=== PATIENT | male | born 1935 | race Caucasian/White ===

== ENCOUNTER 2017-09-13 03:07 | Emergency (ER) | payer MEDICARE, OTHER ==
[2017-09-13] MEDS ORDERED: Aspirin 81 MG Tab.Chew PO ONE (03:24)
--- NOTE | 2017-09-13 03:35 | EDM.PDOC ---
ED HPI GENERAL MEDICAL PROBLEM - General Chief Complaint: Back Pain or Injury Stated Complaint: POSSIBLE HEART ATTACK Time Seen by Provider: 09/13/17 03:20 Source of Information: Reports: Patient, Old Records, RN, RN Notes Reviewed History Limitations: Reports: No Limitations - History of Present Illness INITIAL COMMENTS - FREE TEXT/NARRATIVE: Getachew is a 81 yo M who presents due to right shoulder pain and right sided chest pain. He reports that his pain started around [id number] when he was getting ready for bed. Reports that he has sharp pain in the right side of his neck, radiating down right shoulder, into his right elbow. He reports that his pain radiates into his right chest. Pain in his chest is worse with movement and breathing. He denies cough, shortness of breath, nausea/vomiting, or recent illness. reports that he woke up complaining of pain to his shoulder and she put "bath and body cream" on his shoulder. 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: Aspirin Right Back Pain Score (Numeric/FACES): 3 - Related Data Allergies Allergy/AdvReac Type Severity Reaction Status Date / Time acetaminophen [From Tylenol] Allergy Confusion Verified 09/13/17 03:15 ibuprofen Allergy Confusion Verified 09/13/17 03:15 Home Meds: Home Meds Bimatoprost [Lumigan 0.01% Ophth Soln] 1 drop EYEBOTH BEDTIME 07/27/15 [History] Brimonidine Tartrate [Alphagan P 0.1% Ophth Soln] 1 drop EYERT BID 07/27/15 [ History] Past Medical History HEENT History: Reports: Impaired Vision Respiratory History: Reports: None, Other (See Below) Gastrointestinal History: Reports: None Genitourinary History: Reports: None 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 Musculoskeletal History: Reports: None Neurological History: Reports: None Psychiatric History: Reports: None Endocrine/Metabolic History: Reports: None Hematologic History: Reports: None Immunologic History: Reports: None Dermatologic History: Reports: None - Infectious Disease History Infectious Disease History: Reports: None - Past Surgical History HEENT Surgical History: Reports: Cataract Surgery GI Surgical History: Reports: Appendectomy, Cholecystectomy Social & Family History - Family History HEENT: Reports: None Cardiac: Reports: None Respiratory: Reports: None, Other (See Below) GI: Reports: None - Tobacco Use Smoking Status *Q: Current Every Day Smoker Years of Tobacco use: 60 Packs/Tins Daily: 0.2 Used Tobacco, but Quit: No Second Hand Smoke Exposure: Yes - Caffeine Use Caffeine Use: Reports: Coffee - Recreational Drug Use Recreational Drug Use: No ED ROS GENERAL - Review of Systems Review Of Systems: ROS reveals no pertinent complaints other than HPI. ED EXAM,LOWER BACK PAIN/INJURY - Physical Exam Exam: See Below Exam Limited By: No Limitations General Appearance: Alert, WD/WN, No Apparent Distress Eye Exam: Bilateral Eye: PERRL Ears: Normal External Exam, Normal Canal, Hearing Grossly Normal, Normal TMs Nose: Normal Inspection, Normal Mucosa, No Blood Throat/Mouth: Normal Inspection, Normal Lips, Normal Teeth, Normal Gums, Normal Oropharynx, Normal Voice, No Airway Compromise Head: Atraumatic, Normocephalic Neck: Normal Inspection, Supple, Other (Reports pain to right side of neck. Increased pain will movement) Respiratory/Chest: No Respiratory Distress, Lungs Clear, Normal Breath Sounds, No Accessory Muscle Use, Other (Right upper chest pain) Cardiovascular: Normal Peripheral Pulses, Regular Rate, Rhythm, No Edema, No Gallop, No JVD, No Murmur, No Rub GI/Abdominal: Normal Bowel Sounds, Soft, Non-Tender, No Organomegaly, No Distention, No Abnormal Bruit, No Mass (Male) Exam: Deferred Rectal (Males) Exam: Deferred Back Exam: Normal Inspection, Full Range of Motion, NT Extremities: Normal Inspection, No Pedal Edema, Normal Capillary Refill, Arm Pain, Limited Range of Motion (Pain to right shoulder. Difficulty abducting arm. Positive empty can sign. Patient has pain will crossing arm across chest. No abnormalities noted to left arm/shoulder ) Neurological: Alert, Normal Mood/Affect, Normal Dorsiflexion, CN II-XII Intact, Normal Plantar Flexion, Normal Gait, Normal Reflexes, No Motor/Sensory Deficits , Oriented x 3 Psychiatric: Normal Affect, Normal Mood Skin Exam: Warm, Dry, Intact, Normal Color, No Rash Lymphatic: No Adenopathy EKG INTERPRETATION EKG Date: 09/13/17 Time: 03:41 Rhythm: Other (Sinus rhythm with PVC) Comparison: No Change Course - Vital Signs Last Recorded V/S: Last Vital Signs Temp 97.7 F 09/13/17 03:11 Pulse 80 09/13/17 03:11 Resp 22 H 09/13/17 03:11 BP 125/77 09/13/17 03:23 Pulse Ox 95 09/13/17 03:11 - Orders/Labs/Meds Orders: Active Orders 24 hr Category Date Time Status EKG Documentation Completion [RC] URGENT Care 09/13/17 03:24 Active Labs: Laboratory Tests 09/13/17 09/13/17 Range/Units 03:18 03:18 WBC 12.1 H (5.0-10.0) 10^3/uL RBC 3.88 L (4.6-6.2) 10^6/uL Hgb 12.8 L (14.0-18.0) g/dL Hct 36.2 L (40.0-54.0) % MCV 93.3 (80-100) fL MCH 33.0 (27.0-34.0) pg MCHC 35.4 H (33.0-35.0) g/dL Plt Count 360 D (150-450) 10^3/uL Neut % (Auto) 63.8 (42.2-75.2) % Lymph % (Auto) 18.1 L (20.5-50.1) % Price % (Auto) 16.4 H (2-8) % Eos % (Auto) 1.3 (1.0-3.0) % Baso % (Auto) 0.4 (0.0-1.0) % Sodium 126 L (135-145) mmol/L Potassium 3.4 L (3.6-5.0) mmol/L Chloride 94 L (101-111) mmol/L Carbon Dioxide 24.0 (21.0-31.0) mmol/L Anion Gap 11.4 BUN 13 (7-18) mg/dL Creatinine 0.8 (0.6-1.3) mg/dL Est Cr Clr Drug Dosing 65.41 mL/min Estimated GFR (MDRD) > 60 BUN/Creatinine Ratio 16.25 Glucose 95 (74-105) mg/dL Calcium 8.0 L (8.4-10.2) mg/dl Total Bilirubin 1.8 H (0.2-1.0) mg/dL AST 25 (10-42) IU/L ALT 18 (10-60) IU/L Alkaline Phosphatase 49 (42-121) IU/L Troponin I < 0.02 (0.00-0.02) ng/ml Total Protein 7.0 (6.7-8.2) g/dl Albumin 3.4 (3.2-5.5) g/dl Globulin 3.6 Albumin/Globulin Ratio 0.94 Meds: Medications Discontinued Medications Generic Name Dose Route Start Last Admin Trade Name Freq PRN Reason Stop Dose Admin Aspirin 324 mg 09/13/17 03:24 09/13/17 03:28 Aspirin PO 09/13/17 03:25 324 mg ONETIME ONE Administration Morphine Sulfate 2 mg 09/13/17 03:41 09/13/17 03:55 Morphine IVPUSH 09/13/17 03:42 2 mg ONETIME ONE Administration Departure - Departure Time of Disposition: 04:17 Disposition: Home, Self-Care 01 Condition: Good Clinical Impression: Neck pain on right side Right shoulder pain Qualifiers: Chronicity: unspecified Qualified Code(s): M25.511 - Pain in right shoulder - Discharge Information Instructions: Shoulder Pain, Muscle Strain, [id number] Forms: ED Department Discharge Care Plan Goals: Lidocaine patch as needed for pain. Follow-up with your primary care facility later this week for a recheck. Gentle ROM to shoulder to prevent frozen shoulder.
[2017-09-13] MEDS ORDERED: Morphine 2 MG/ML Syringe IVPUSH ONE (03:41)
[2017-09-13 03:44] LABS: ANION GAP 11.4; CHLORIDE,CL 94 mmol/L (101-111); SODIUM,NA 126 mmol/L (135-145)
[2017-09-13] MEDS ORDERED: Lidocaine 5% 700 MG Patch TOP ONE (04:17)
[2017-09-13 04:39] VITALS: BP 125/68
--- NOTE | 2017-09-13 14:08 | EKG ---
09/13/2017- SHARRI CARPIO - FINDINGS: EKG, per my reading, shows sinus rhythm at the rate of 75 with PVC. MOD /[id number]
== END 2017-09-13 04:45 | disposition home or self-care (01) ==
LOC: DL.ED 03:07
DX: M25.511 Pain in right shoulder (principal); M54.2 Cervicalgia; R07.9 Chest pain, unspecified; F17.210 Nicotine dependence, cigarettes, uncomplicated; Z88.6 Allergy status to analgesic agent; Z88.8 Allergy status to other drugs, medicaments and biological substances
CPT/HCPCS: 36415; 71045; 73060; 80053; 84484; 85025; 93005; 93010; 96374; 99284; A9270; J2270

== ENCOUNTER 2020-06-14 08:37 | Observation (INO) | payer MEDICARE, OTHER ==
--- NOTE | 2020-06-14 08:38 | EDM.PDOC ---
ED HPI GENERAL MEDICAL PROBLEM - General Chief Complaint: Neuro Symptoms/Deficits Stated Complaint: STROKE CODE ER 20 MINS Time Seen by Provider: 06/14/20 08:38 Source of Information: Reports: Patient, EMS, Old Records, RN, RN Notes Reviewed History Limitations: Reports: Altered Mental Status - History of Present Illness INITIAL COMMENTS - FREE TEXT/NARRATIVE: Pt arrives from home by [facility] with report of sudden onset of slumping over in his chair and being unresponsive. Last known well time was 0730HRS per pt's . Pt had just finished wrapping his 's leg, and was waiting for breakfast when he slumped down in his chair. Pt did not fall. EMS reports pt woke up while in the ambulance. He was found by EMS to have BP 70s/30s with HR in 50s on scene. His blood glucose was 96. EMS gave one liter NS IV bolus, BP and HR improved and pt woke up. He arrives to ER awake, alert, oriented, and wondering "what all the fuss is about". He denies chest pain, lightheadedness, visual changes, difficulty with speech or swallowing, or motor weakness. Denies Hx of CAD/NH, or stroke. Onset: Today, Unknown/Unsure Onset Date: 06/14/20 Onset Time: 07:30 (Last known well time.) Duration: Resolved Prior to Arrival Location: Reports: Generalized Severity: Severe Improves with: Reports: None Worsens with: Reports: None Associated Symptoms: Reports: No Other Symptoms Head Pain Score (Numeric/FACES): 4 - Related Data Allergies Allergy/AdvReac Type Severity Reaction Status Date / Time acetaminophen [From Tylenol] Allergy Confusion Verified 06/14/20 09:28 ibuprofen Allergy Confusion Verified 06/14/20 09:28 Home Meds: Home Meds Bimatoprost [Lumigan 0.01% Ophth Soln] 1 drop EYEBOTH BEDTIME 07/27/15 [History] Brimonidine Tartrate [Alphagan P 0.1% Ophth Soln] 1 drop EYERT BID 07/27/15 [History] Past Medical History HEENT History: Reports: Impaired Vision Respiratory History: Reports: None, Other (See Below) Gastrointestinal History: Reports: None Genitourinary History: Reports: None 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 Musculoskeletal History: Reports: None Neurological History: Reports: None Psychiatric History: Reports: None Endocrine/Metabolic History: Reports: None Hematologic History: Reports: None Immunologic History: Reports: None Dermatologic History: Reports: None - Infectious Disease History Infectious Disease History: Reports: None - Past Surgical History HEENT Surgical History: Reports: Cataract Surgery GI Surgical History: Reports: Appendectomy, Cholecystectomy Social & Family History - Family History HEENT: Reports: None Cardiac: Reports: None Respiratory: Reports: None, Other (See Below) GI: Reports: None - Tobacco Use Tobacco Use Status *Q: Current Every Day Tobacco User Tobacco Use Within Last Twelve Months: Cigarettes - Caffeine Use Caffeine Use: Reports: Coffee - Living Situation & Occupation Living situation: Reports: , with Spouse Occupation: Retired ED ROS GENERAL - Review of Systems Review Of Systems: Comprehensive ROS is negative, except as noted in HPI. ED EXAM, NEURO - Physical Exam Exam: See Below Exam Limited By: No Limitations General Appearance: Alert, WD/WN, No Apparent Distress, Other (Frail elderly male) Eye Exam: Bilateral Eye: EOMI, Normal Inspection, PERRL Ears: Normal External Exam Nose: Normal Inspection, Normal Mucosa, No Blood Throat/Mouth: Normal Inspection, Normal Lips, Normal Oropharynx, Normal Voice, No Airway Compromise Head Exam: Atraumatic, Normocephalic Neck: Normal Inspection, Supple, Non-Tender, Full Range of Motion Respiratory/Chest: No Respiratory Distress, Lungs Clear, Normal Breath Sounds, No Accessory Muscle Use, Chest Non-Tender Cardiovascular: Regular Rate, Rhythm, No Edema, Bradycardia GI/Abdominal: Normal Bowel Sounds, Soft, Non-Tender, No Organomegaly, No Distention, No Abnormal Bruit, No Mass Neurological: Alert, Normal Mood/Affect, Normal Dorsiflexion, CN II-XII Intact, Normal Plantar Flexion, No Motor/Sensory Deficits, Oriented x 3, Other (NIH score: 0) Back Exam: Normal Inspection Extremities: Normal Inspection, Normal Range of Motion, Non-Tender, No Pedal Edema, Normal Capillary Refill Psychiatric: Normal Affect, Normal Mood Skin Exam: Warm, Dry, Intact, Normal Color, No Rash #1 Interpretation EKG Date: 06/14/20 Time: 08:47 Rhythm: Other (Sinus elisabeth) Rate (Beats/Min): 57 [place]: Normal P-Wave: Present QRS: Normal ST-T: Normal QT: Prolonged NC/PQ Interval: short NC interval Comparison: No Change Course - Vital Signs Last Recorded V/S: Last Vital Signs Temp 97.6 F 06/14/20 09:15 Pulse 58 L 06/14/20 09:15 Resp 15 06/14/20 09:15 BP 101/55 L 06/14/20 09:15 Pulse Ox 98 06/14/20 09:15 - Orders/Labs/Meds Orders: Active Orders 24 hr Category Date Time Status Admission Diagnosis [ADT] Routine ADT 06/14/20 10:05 Ordered Admission Status [Patient Status] [ADT] Routine ADT 06/14/20 10:05 Active Blood Glucose Check, Bedside [] ONETIME Care 06/14/20 08:38 Active Blood Glucose Check, Bedside [] ONETIME Care 06/14/20 08:48 Active EKG 12 Lead [EKG Documentation Completion] [] STAT Care 06/14/20 08:39 Active NIH Stroke Scale [] ASDIRECTED Care 06/14/20 08:49 Active Orthostatic Vital Signs [] ASDIRECTED Care 06/14/20 09:12 Active Peripheral IV Care [] . DIRECTED Care 06/14/20 08:40 Active CORONAVIRUS COVID-19 CHASITY [MOLEC] Stat Lab 06/14/20 09:53 Received DRUG SCREEN URINE BIORAD [URCHEM] Stat Lab 06/14/20 08:39 Ordered INFLUENZA A+B AG SCREEN [RM] Stat Lab 06/14/20 09:53 Received UA RFX VIRIDIANA AND CULT IF INDIC [URIN] Stat Lab 06/14/20 08:39 Ordered Sodium Chloride 0.9% [Saline Flush] Med 06/14/20 08:39 Active 10 ml FLUSH ASDIRECTED PRN Isolation [COMM] Routine Oth 06/14/20 09:50 Active Peripheral IV Insertion Adult [OM.PC] Stat Oth 06/14/20 08:39 Ordered Medication Orders Sodium Chloride (Saline Flush) 10 ml FLUSH ASDIRECTED PRN PRN Reason: Keep Vein Open Last Admin: 06/14/20 09:27 Dose: 10 ml Documented by: BLAISE Labs: Laboratory Tests 06/14/20 06/14/20 06/14/20 Range/Units 08:41 09:14 09:14 WBC 6.1 (5.0-10.0) 10^3/uL RBC 3.45 L (4.6-6.2) 10^6/uL Hgb 11.3 L D (14.0-18.0) g/dL Hct 33.2 L (40.0-54.0) % MCV 96.2 D (80-100) fL MCH 32.8 (27.0-34.0) pg MCHC 34.0 (33.0-35.0) g/dL Plt Count 274 (150-450) 10^3/uL Neut % (Auto) 52.1 (42.2-75.2) % Lymph % (Auto) 26.7 (20.5-50.1) % [place] % (Auto) 14.5 H (2-8) % Eos % (Auto) 5.9 H (1.0-3.0) % Baso % (Auto) 0.8 (0.0-1.0) % PT (9.0-12.0) SEC INR (0.9-1.2) APTT (22.0-34.0) SEC Sodium 134 L (136-145) mmol/L Potassium 4.2 (3.5-5.1) mmol/L Chloride 98 (98-107) mmol/L Carbon Dioxide 29 (21-32) mmol/L Anion Gap 11.2 (7-13) mEq/L BUN 12 (7-18) mg/dL Creatinine 1.04 (0.70-1.30) mg/dL Est Cr Clr Drug Dosing TNP Estimated GFR (MDRD) > 60 BUN/Creatinine Ratio 11.5 (No establ ref range) Glucose 93 (74-99) mg/dL POC Glucose 91 (83-110) mg/dl Lactic Acid (0.4-2.0) mmol/L Calcium 7.7 L (8.5-10.1) mg/dL Magnesium 1.6 L (1.8-2.4) mg/dL Total Bilirubin 1.3 H (0.2-1.0) mg/dL AST 18 (15-37) U/L ALT 19 (16-63) U/L Alkaline Phosphatase 55 (46-116) U/L Creatine Kinase 91 (39-308) U/L Troponin I < 0.017 (0.000-0.056) ng/mL C-Reactive Protein < 0.2 (0.0-0.9) mg/dL B-Natriuretic Peptide 116 H (0-100) pg/ml Total Protein 6.1 L (6.4-8.2) g/dL Albumin 2.9 L (3.4-5.0) g/dL Globulin 3.2 Albumin/Globulin Ratio 0.91 TSH, Ultra Sensitive 3.06 (0.36-3.74) uIU/mL Ethyl Alcohol 3 (0) mg/dL 06/14/20 06/14/20 Range/Units 09:14 09:14 WBC (5.0-10.0) 10^3/uL RBC (4.6-6.2) 10^6/uL Hgb (14.0-18.0) g/dL Hct (40.0-54.0) % MCV (80-100) fL MCH (27.0-34.0) pg MCHC (33.0-35.0) g/dL Plt Count (150-450) 10^3/uL Neut % (Auto) (42.2-75.2) % Lymph % (Auto) (20.5-50.1) % Upson % (Auto) (2-8) % Eos % (Auto) (1.0-3.0) % Baso % (Auto) (0.0-1.0) % PT 11.1 (9.0-12.0) SEC INR 1.2 (0.9-1.2) APTT 25.3 (22.0-34.0) SEC Sodium (136-145) mmol/L Potassium (3.5-5.1) mmol/L Chloride (98-107) mmol/L Carbon Dioxide (21-32) mmol/L Anion Gap (7-13) mEq/L BUN (7-18) mg/dL Creatinine (0.70-1.30) mg/dL Est Cr Clr Drug Dosing Estimated GFR (MDRD) BUN/Creatinine Ratio (No establ ref range) Glucose (74-99) mg/dL POC Glucose (83-110) mg/dl Lactic Acid 1.1 (0.4-2.0) mmol/L Calcium (8.5-10.1) mg/dL Magnesium (1.8-2.4) mg/dL Total Bilirubin (0.2-1.0) mg/dL AST (15-37) U/L ALT (16-63) U/L Alkaline Phosphatase (46-116) U/L Creatine Kinase (39-308) U/L Troponin I (0.000-0.056) ng/mL C-Reactive Protein (0.0-0.9) mg/dL B-Natriuretic Peptide (0-100) pg/ml Total Protein (6.4-8.2) g/dL Albumin (3.4-5.0) g/dL Globulin Albumin/Globulin Ratio TSH, Ultra Sensitive (0.36-3.74) uIU/mL Ethyl Alcohol (0) mg/dL Meds: Medications Generic Name Dose Route Start Last Admin Trade Name Freq PRN Reason Stop Dose Admin Sodium Chloride 10 ml 06/14/20 08:39 06/14/20 09:27 Saline Flush FLUSH 10 ml ASDIRECTED PRN Administration Keep Vein Open - Radiology Interpretation Free Text/Narrative:: [facility] Final Radiology Report Call: [phone] assistance Online chat: [email or web address] Name: SHARRI CARPIO Age: 84Years M Date: 06/14/2020 SSN: -- : [id number] Study: CT HEAD WO CONT Requesting Physician: LLOYD MENG Images: 151 Addl Studies: Provided Clinical History: STROKE CODE: sudden onset unresponsiveness Contrast: Without Contrast Medium: Contrast Amount: Contrast Method: Page 1 of 2 PROCEDURE INFORMATION: Exam: CT Head Without Contrast Exam date and time: 06/14/2020 8:42 AM Age: 84 years old Clinical indication: Other: See below; Patient HX: Stroke code: Sudden onset unresponsiveness TECHNIQUE: Imaging protocol: Computed tomography of the head without contrast. Radiation optimization: All CT scans at this facility use at least one of these dose optimization techniques: automated exposure control; mA and/or kV adjustment per patient size (includes targeted exams where dose is matched to clinical indication); or iterative reconstruction . Other technique: STROKE PROTOCOL was implemented. COMPARISON: CT Head wo Cont 01/14/2019 9:45 AM FINDINGS: Brain: No intracranial hemorrhage. There is diffuse cerebral atrophy. There are white matter low attenuation changes in both cerebral hemispheres potentially related to chronic small vessel disease. Subjectively there appears to be decreased attenuation in both inferior occipital lobes and the susan. This might be artifactual, but given the history consider the possibility of posterior circulation ischemic event. Cerebral ventricles: No hydrocephalus. Bones/joints: No calvarial fracture. Paranasal sinuses: Mild multifocal mucoperiosteal thickening. Mastoid air cells: Bilateral mastoid air cell effusions. Soft tissues: No acute soft tissue abnormality. IMPRESSION: No intracranial hemorrhage. Findings which may be due to posterior circulation ischemic event. If the clinical scenario would support this further evaluation with CTA may be helpful. SHARRI CARPIO | Final Radiology Report CONFIDENTIALITY STATEMENT This report is intended only for use by the referring physician, and only in accordance with law. If you received this in error, call [phone]. Page 2 of 2 ASSESSMENT: ASPECTS ([place] Stroke Program Early CT Score) is 10. Thank you for allowing us to participate in the care of your patient. Dictated and Authenticated by: Apolinar Liang MD 06/14/2020 8:59 AM Central Time ([place] & [place]) [facility] Final Radiology Report Call: [phone] assistance Online chat: [email or web address] Name: SHARRI CARPIO Age: 84Years M Date: 06/14/2020 SSN: -- : [id number] Study: CR CHEST 1V FRONTAL Requesting Physician: LLOYD MENG Images: 1 Addl Studies: Provided Clinical History: syncope Contrast: Contrast Medium: Contrast Amount: Contrast Method: CONFIDENTIALITY STATEMENT This report is intended only for use by the referring physician, and only in accordance with law. If you received this in error, call [phone]. Page 1 of 1 PROCEDURE INFORMATION: Exam: XR Chest, 1 View Exam date and time: 06/14/2020 9:42 AM Age: 84 years old Clinical indication: Syncope TECHNIQUE: Imaging protocol: XR of the chest Views: 1 view. COMPARISON: No relevant prior studies available. FINDINGS: Lungs: Left basilar atelectasis versus scarring. No pulmonary vascular congestion or pulmonary edema. Pleural space: No pleural effusion or pneumothorax. Heart/Mediastinum: The cardiac silhouette is not enlarged. The mediastinal contours are normal. Diaphragm: Elevated left hemidiaphragm. Bones/joints: No acute osseous abnormality. IMPRESSION: Left basilar atelectasis versus scarring. Thank you for allowing us to participate in the care of your patient. Dictated and Authenticated by: Apolinar Liang MD 06/14/2020 9:59 AM Central Time ([place] & [place]) Departure - Departure Time of Disposition: 10:10 (admitted to Dr. Ventura) Disposition: Refer to Observation Condition: Undetermined Clinical Impression: Syncope Qualifiers: Syncope type: unspecified Qualified Code(s): R55 - Syncope and collapse - Discharge Information *PRESCRIPTION DRUG MONITORING PROGRAM REVIEWED*: Not Applicable *COPY OF PRESCRIPTION DRUG MONITORING REPORT IN PATIENT KENNEDY: Not Applicable Forms: ED Department Discharge Sepsis Event Note (ED) - Focused Exam Vital Signs: Vital Signs Temp Pulse Resp BP Pulse Ox 06/14/20 09:15 97.6 F 58 L 15 101/55 L 98 - My Orders Last 24 Hours: My Active Orders 06/14/20 08:38 Blood Glucose Check, Bedside [RC] ONETIME 06/14/20 08:39 EKG 12 Lead [EKG Documentation Completion] [RC] STAT DRUG SCREEN URINE BIORAD [URCHEM] Stat UA RFX VIRIDIANA AND CULT IF INDIC [URIN] Stat Sodium Chloride 0.9% [Saline Flush] 10 ml FLUSH ASDIRECTED PRN Peripheral IV Insertion Adult [OM.PC] Stat 06/14/20 08:40 Peripheral IV Care [RC] . DIRECTED 06/14/20 08:48 Blood Glucose Check, Bedside [RC] ONETIME 06/14/20 08:49 NIH Stroke Scale [RC] ASDIRECTED 06/14/20 09:12 Orthostatic Vital Signs [RC] ASDIRECTED 06/14/20 09:50 Isolation [COMM] Routine 06/14/20 09:53 CORONAVIRUS COVID-19 CHASITY [MOLEC] Stat INFLUENZA A+B AG SCREEN [RM] Stat 06/14/20 10:05 Admission Diagnosis [ADT] Routine Admission Status [Patient Status] [ADT] Routine - Assessment/Plan Last 24 Hours: My Active Orders 06/14/20 08:38 Blood Glucose Check, Bedside [RC] ONETIME 06/14/20 08:39 EKG 12 Lead [EKG Documentation Completion] [RC] STAT DRUG SCREEN URINE BIORAD [URCHEM] Stat UA RFX VIRIDIANA AND CULT IF INDIC [URIN] Stat Sodium Chloride 0.9% [Saline Flush] 10 ml FLUSH ASDIRECTED PRN Peripheral IV Insertion Adult [OM.PC] Stat 06/14/20 08:40 Peripheral IV Care [RC] . DIRECTED 06/14/20 08:48 Blood Glucose Check, Bedside [RC] ONETIME 06/14/20 08:49 NIH Stroke Scale [RC] ASDIRECTED 06/14/20 09:12 Orthostatic Vital Signs [RC] ASDIRECTED 06/14/20 09:50 Isolation [COMM] Routine 06/14/20 09:53 CORONAVIRUS COVID-19 CHASITY [MOLEC] Stat INFLUENZA A+B AG SCREEN [RM] Stat 06/14/20 10:05 Admission Diagnosis [ADT] Routine Admission Status [Patient Status] [ADT] Routine
[2020-06-14] MEDS ORDERED: Sodium Chloride 0.9% 10 ML Syringe FLUSH PRN (08:39)
--- NOTE | 2020-06-14 08:59 | CT ---
PROCEDURE INFORMATION: Exam: CT Head Without Contrast Exam date and time: 06/14/2020 8:42 AM Age: 84 years old Clinical indication: Other: See below; Patient HX: Stroke code: Sudden onset unresponsiveness TECHNIQUE: Imaging protocol: Computed tomography of the head without contrast. Radiation optimization: All CT scans at this facility use at least one of these dose optimization techniques: automated exposure control; mA and/or kV adjustment per patient size (includes targeted exams where dose is matched to clinical indication); or iterative reconstruction. Other technique: STROKE PROTOCOL was implemented. COMPARISON: CT Head wo Cont 01/14/2019 9:45 AM FINDINGS: Brain: No intracranial hemorrhage. There is diffuse cerebral atrophy. There are white matter low attenuation changes in both cerebral hemispheres potentially related to chronic small vessel disease. Subjectively there appears to be decreased attenuation in both inferior occipital lobes and the susan. This might be artifactual, but given the history consider the possibility of posterior circulation ischemic event. Cerebral ventricles: No hydrocephalus. Bones/joints: No calvarial fracture. Paranasal sinuses: Mild multifocal mucoperiosteal thickening. Mastoid air cells: Bilateral mastoid air cell effusions. Soft tissues: No acute soft tissue abnormality. IMPRESSION: No intracranial hemorrhage. Findings which may be due to posterior circulation ischemic event. If the clinical scenario would support this further evaluation with CTA may be helpful. ASSESSMENT: ASPECTS ([place] Stroke Program Early CT Score) is 10.
[2020-06-14 09:42] LABS: PTT,PARTIAL THROMBOPLSTIN TIME 25.3 SEC (22.0-34.0)
[2020-06-14 09:49] LABS: ANION GAP 11.2 mEq/L (7-13); CHLORIDE,CL 98 mmol/L (98-107); SODIUM,NA 134 mmol/L (136-145)
--- NOTE | 2020-06-14 10:00 | CR ---
PROCEDURE INFORMATION: Exam: XR Chest, 1 View Exam date and time: 06/14/2020 9:42 AM Age: 84 years old Clinical indication: Syncope TECHNIQUE: Imaging protocol: XR of the chest Views: 1 view. COMPARISON: No relevant prior studies available. FINDINGS: Lungs: Left basilar atelectasis versus scarring. No pulmonary vascular congestion or pulmonary edema. Pleural space: No pleural effusion or pneumothorax. Heart/Mediastinum: The cardiac silhouette is not enlarged. The mediastinal contours are normal. Diaphragm: Elevated left hemidiaphragm. Bones/joints: No acute osseous abnormality. IMPRESSION: Left basilar atelectasis versus scarring.
[2020-06-14] MEDS ORDERED: Docusate Sodium 100 MG Cap PO PRN (11:27)
[2020-06-14] MEDS ORDERED: Ondansetron 4 MG Tab.DIS PO PRN (11:27)
[2020-06-14] MEDS ORDERED: Acetaminophen 325 MG Tab PO PRN (11:27)
[2020-06-14] MEDS ORDERED: ALBUTEROL INH PRN ×2 (11:29→15:28)
[2020-06-14] MEDS ORDERED: IPRATROPIUM INH PRN ×2 (11:29→15:28)
[2020-06-14] MEDS ORDERED: Sodium Chloride 0.9% 1,000 ML IV SCH ×2 (11:30→12:45)
--- NOTE | 2020-06-14 12:29 | HP ---
CHIEF COMPLAINT: Syncope. HISTORY OF PRESENT ILLNESS: The patient is an 84-year-old gentleman who was brought in by ambulance to the emergency room because of sudden onset of slumping over on his chair and being unresponsive. The patient mentioned that he was trying to help his wrap her leg and was waiting breakfast and suddenly he did not know what happened, and when he woke up, he was in the ambulance. In the ambulance, his blood pressure was 70/30 with heart rate in the 50s and he was given 1 L of normal saline and blood pressure and heart rate improved, and on arrival in the emergency room, he was awake, alert, and oriented. The patient denies any headache, chest pain, shortness of breath, abdominal pain, melena, hematochezia, nor any other complaints. Because of the above episode, he was then admitted for observation and further evaluation. PAST MEDICAL HISTORY: Remarkable for: 1. Hypothyroidism. 2. Hypomagnesemia. 3. Appendectomy. 4. Cholecystectomy. 5. Cataract surgery. FAMILY HISTORY: Noncontributory. SOCIAL HISTORY: Patient is , [place]. He smokes about 4 cigarettes a day and does not drink any alcohol. REVIEW OF SYSTEMS: As in HPI. The rest of the review of systems is negative. HOME MEDICATION: 1. Alphagan. 2. Lumigan. 3. Levothyroxine. 4. Magnesium. ALLERGIES: Tylenol and ibuprofen that is listed, but according to the patient and , he takes this without any problem. PHYSICAL EXAMINATION: General: The patient is alert and oriented, mild hard of hearing. Vital Signs: Blood pressure is 101/55, pulse of 58, respirations of 15, saturation is 98% on room air, and temperature of 97.6. SHEENT: Normocephalic. There are pink palpebral conjunctivae. Sclerae anicteric. No JVD. No lymphadenopathy. Neck: Supple. No carotid bruits. Heart: Regular rate and rhythm. Normal S1 and S2. No gallops. No rubs. Lungs: Equal bilaterally. No crackles. No wheezing. Abdomen: Soft. Nontender. Bowel sounds positive. Extremities: Negative for any pedal edema. No calf tenderness. Neurologic: Negative for any lateralizing signs. LABORATORY DATA: CBC: WBC 6.1, hemoglobin is 11.3, hematocrit is 33.2, platelet is 274. Comp panel: Sodium is 134, calcium is 7.7, magnesium is 1.6, total bilirubin of 1.3. The rest of the panel unremarkable. Troponin is less than 0.017. CAT scan of the head, no intracranial hemorrhage, findings which may be due to posterior circulation ischemic event if the clinical scenario would support. Chest x-ray showed left bibasilar atelectasis versus scarring. There is no pulmonary vascular congestion or pulmonary edema. ADMITTING DIAGNOSES: Syncope, etiology undetermined. We are going to put him on telemetry. We will also order for an echocardiogram, and he will be given IV fluids. We will recheck troponin, CBC, and basic metabolic panel in a.m., and the rest of the management as necessary, and the patient is a full code. [facility] /[id number]
[2020-06-14] MEDS: Nicotine 7 MG/24 Hr Patch TRDERM SCH (12:36)
[2020-06-14] MEDS ORDERED: Loperamide 2 MG Cap PO PRN (16:43)
[2020-06-14] MEDS: IPRATROPIUM INH SCH ×2 (17:08→21:35)
[2020-06-14] MEDS: ALPHAGAN P EYERT SCH ×2 (17:10→21:34)
[2020-06-14] MEDS ORDERED: LUMIGAN 0.01% EYEBOTH SCH (21:00)
[2020-06-14] MEDS ORDERED: Aspirin 81 MG Tab.EC PO SCH (21:00)
[2020-06-14] MEDS: Acetaminophen 500 MG Tab PO SCH (21:33)
[2020-06-15 05:21] VITALS: BP 161/89
[2020-06-15] MEDS ORDERED: Levothyroxine 25 MCG Tab **OWN MED PO SCH (06:00)
[2020-06-15 06:58] LABS: ANION GAP 13.1 mEq/L (7-13); CHLORIDE,CL 97 mmol/L (98-107); SODIUM,NA 134 mmol/L (136-145)
[2020-06-15 08:14] VITALS: PULSE 72
[2020-06-15] MEDS ORDERED: Enoxaparin 40 MG/0.4 ML Syringe SUBCUT SCH (09:00)
[2020-06-15] MEDS: IPRATROPIUM INH SCH (09:00)
[2020-06-15] MEDS ORDERED: BREO ELIPTA INH SCH (09:00)
[2020-06-15] MEDS ORDERED: MAGNESIUM OXIDE 400 MG PO SCH (09:00)
[2020-06-15] MEDS: ALPHAGAN P EYERT SCH (09:45)
[2020-06-15] MEDS: Nicotine 7 MG/24 Hr Patch TRDERM SCH (09:47)
[2020-06-15] MEDS: Acetaminophen 500 MG Tab PO SCH (11:01)
--- NOTE | 2020-06-15 14:21 | PN ---
DATE: 06/15/2020 SUBJECTIVE: The patient has been doing fairly well. The patient mentioned that he is feeling better and denies any more syncope and he would like to go home. Telemetry has been sinus rhythm with no significant arrhythmia. LABORATORY DATA: Lab workup this morning. CBC: WBC 6.5, hemoglobin is 12.7, hematocrit is 36.9, platelet is 324. Chem-6: Sodium is 134, chloride of 97. The rest of the panel unremarkable. OBJECTIVE: Vital Signs: Blood pressure is 161/89, pulse of 72, respirations of 20, temperature of 98.2, saturation is 94% on room air and telemetry is sinus rhythm with no significant arrhythmias. Heart: Regular rate and rhythm. No gallops. No rubs. Lungs: Equal bilaterally. No crackles. No wheezing. Abdomen: Soft, nontender. Bowel sounds positive. Extremities: Negative for any significant pedal edema. No calf tenderness. Neurologic: Nonfocal and negative for any lateralizing signs. MEDICATIONS: Reviewed. PLAN: We will discharge the patient home today and the patient to follow up with Cristina Tirado in 7 to 10 days, and the patient may still need to have his Holter monitor or ZIO patch done, and also the echocardiogram for completion of the syncope workup. I am also going to resume his previous home medication. [facility] /[id number]
--- NOTE | 2020-06-15 16:14 | DISCH ---
FINAL DIAGNOSES: 1. Syncope, etiology undetermined. 2. Hypothyroidism. 3. Hypomagnesemia. BRIEF HISTORY OF PRESENT ILLNESS: The patient is an 84-year-old gentleman who was admitted through the emergency room because of syncope. PERTINENT LABORATORY, X-RAY, AND OTHER TESTS: On admission, CBC, WBC 6.1, hemoglobin is 11.3, hematocrit is 33.2, platelets 274. Comp panel: Sodium is 134, calcium is 7.7, magnesium is 1.6, total bilirubin of 1.3, and the rest of the panel unremarkable. Troponin is less than 0.017. CAT scan of the head is negative for any acute intracranial pathology, but there are some findings which may be due to posterior circulation ischemic event and clinical scenario correlation. Chest x-ray showed left bibasilar atelectasis versus scarring. Repeat troponin is less than 0.017. Telemetry is sinus rhythm with no significant arrhythmia. HOSPITAL COURSE: The patient was admitted to telemetry floor. The patient was resumed on his home medication. He was also placed on baby aspirin a day. An echocardiogram was ordered, and the patient was placed on telemetry. Hospital course was uncomplicated. Telemetry was unremarkable. Repeat troponin came back negative. The patient is back to baseline, and the patient insisted on going home. The patient was subsequently discharged, and he was resumed on his home medication plus baby aspirin a day. He is going to follow up with Gunjan Tirado in 1 week, and he still has to have his echocardiogram and Holter monitor/ZIO patch to be done as part of the syncope workup. [facility] /[id number]
== END 2020-06-15 10:45 | disposition home or self-care (01) ==
LOC: DL.ED 08:37 → DL.MS 10:05
PROVIDERS: ADMIT Internal Medicine; ATTEND Internal Medicine
DX: R55 Syncope and collapse (principal); E03.9 Hypothyroidism, unspecified; E83.42 Hypomagnesemia; F17.210 Nicotine dependence, cigarettes, uncomplicated; Z20.822 Contact with and (suspected) exposure to COVID-19; Z90.49 Acquired absence of other specified parts of digestive tract; Z98.890 Other specified postprocedural states; Z79.899 Other long term (current) drug therapy; Z88.8 Allergy status to other drugs, medicaments and biological substances
CPT/HCPCS: 36415; 70450; 71045; 80048; 80053; 80305-QW; 80307; 81001; 82550; 82962; 83605; 83735; 83880; 84443; 84484; 85025; 85379; 85610; 85730; 86140; 87804; 93005; 93010; 93306; 99217; 99219; 99284; 99285-25; A9270-GY; G0378; J7030; U0002

== ENCOUNTER 2022-02-01 13:47 | Emergency (ER) | payer MEDICARE, OTHER ==
[2022-02-01] MEDS ORDERED: Sodium Chloride 0.9% 10 ML Syringe FLUSH PRN (14:18)
[2022-02-01 14:37] LABS: ANION GAP 10.6 mEq/L (7-13); CHLORIDE,CL 96 mmol/L (98-107); ESTIMATED GFR 56 mL/min (>=60); SODIUM,NA 139 mmol/L (136-145)
[2022-02-01 14:59] VITALS: BP 139/86; PULSE 75
== END 2022-02-01 16:44 | disposition home or self-care (01) ==
LOC: DL.ED 13:47
DX: R07.9 Chest pain, unspecified (principal); J44.9 Chronic obstructive pulmonary disease, unspecified; E03.9 Hypothyroidism, unspecified; F17.210 Nicotine dependence, cigarettes, uncomplicated; Z79.899 Other long term (current) drug therapy; Z79.82 Long term (current) use of aspirin; Z20.822 Contact with and (suspected) exposure to COVID-19
CPT/HCPCS: 36415; 71045; 80053; 83690; 83735; 84484; 85025; 86140; 93005; 99285; J3490; U0002

== ENCOUNTER 2022-05-09 16:15 | Inpatient (IN) | payer MEDICARE, OTHER ==
[2022-05-09] MEDS ORDERED: methylPREDNISolone Sodium Succinate 125 MG/2 ML SDV IVPUSH ONE (16:22)
[2022-05-09] MEDS ORDERED: Albuterol/Ipratropium 3.0-0.5 MG/3 ML Neb Soln NEB ONE (16:22)
[2022-05-09] MEDS: Sodium Chloride 0.9% 10 ML Syringe FLUSH PRN (17:00)
[2022-05-09 17:15] LABS: ANION GAP 12.8 mEq/L (7-13); PTT,PARTIAL THROMBOPLSTIN TIME 26.2 SEC (22.0-34.0)
[2022-05-09] MEDS ORDERED: Sodium Chloride 0.9% 1,000 ML IV ONE (17:18)
[2022-05-09] MEDS ORDERED: cefTRIAXone 1 GM Vial IVPUSH ONE (17:18)
[2022-05-09] MEDS ORDERED: Azithromycin 500 MG in Sodium Chloride 0.9% 250 ML IV ONE (17:19)
[2022-05-09 17:36] LABS: CORONAVIRUS COVID-19 NAA NEGATIVE (NEGATIVE); RESPIRATORY SYNCYTIAL VIR NAA NEGATIVE (NEGATIVE)
[2022-05-09] MEDS ORDERED: Polyethylene Glycol 3350 Powder 17 GM Packet PO PRN (19:26)
[2022-05-09] MEDS ORDERED: HYDROmorphone 0.5 MG/0.5 ML Syringe IVPUSH PRN (19:26)
[2022-05-09] MEDS ORDERED: Albuterol/Ipratropium 3.0-0.5 MG/3 ML Neb Soln NEB PRN (19:26)
[2022-05-09] MEDS ORDERED: Magnesium Hydroxide 400 MG/5 ML Susp 30 ML Cup PO PRN (19:26)
[2022-05-09] MEDS ORDERED: Acetaminophen 325 MG Tab PO PRN (19:26)
[2022-05-09] MEDS ORDERED: Ondansetron 4 MG/2 ML SDV IVPUSH PRN (19:26)
[2022-05-09] MEDS ORDERED: Bisacodyl 5 MG Tab PO PRN (19:26)
[2022-05-09] MEDS ORDERED: 50% Dextrose in Water 50 ML Syringe IVPUSH PRN (19:31)
[2022-05-09] MEDS ORDERED: Glucagon,Human Recombinant 1 MG Vial IM PRN (19:31)
[2022-05-09] MEDS ORDERED: Acetaminophen/Butalbital/Caffeine 325-50-40 MG Tab PO PRN (19:36)
[2022-05-09] MEDS ORDERED: Lactated Ringers 1,000 ML IV SCH (19:45)
[2022-05-09] MEDS ORDERED: guaiFENesin/Dextromethorphan 100-10 MG/5 ML Soln 5 ML Cup PO PRN (20:05)
[2022-05-09] MEDS ORDERED: Non-Formulary Medication 1 Each (Ipratropium Bromide [Ipratropium Bromide] 15 ML Spray) NS SCH (21:00)
[2022-05-09] MEDS ORDERED: rOPINIRole 2 MG Tab PO SCH (21:00)
[2022-05-09] MEDS: Saccharomyces Boulardii (Probiotic) 250 MG Cap PO SCH (23:03)
[2022-05-09] MEDS: Brimonidine 0.2% Ophth Soln 5 ML Bottle EYERT SCH (23:04)
[2022-05-09] MEDS: Melatonin 3 MG Tab PO SCH (23:04)
[2022-05-10] MEDS: Levothyroxine 25 MCG Tab PO SCH (05:48)
[2022-05-10 07:20] LABS: ANION GAP 10.2 mEq/L (7-13)
[2022-05-10] MEDS: methylPREDNISolone Sodium Succinate 125 MG/2 ML SDV IVPUSH SCH ×2 (09:01→15:03)
[2022-05-10] MEDS: Azithromycin 500 MG in Sodium Chloride 0.9% 250 ML IV SCH (09:01)
[2022-05-10] MEDS: Sodium Chloride 0.9% 10 ML Syringe FLUSH PRN ×4 (09:05→20:53)
[2022-05-10] MEDS: Vitamin E (dl-alpha-tocopherol acetate) 400 Unit Cap PO SCH (09:06)
[2022-05-10] MEDS: Ferrous Sulfate 325 MG Tab PO SCH (09:06)
[2022-05-10] MEDS: Cyanocobalamin (Vitamin B12) 100 MCG Tab PO SCH (09:07)
[2022-05-10] MEDS: Calcium Carbonate 500 MG Tab.Chew PO SCH (09:07)
[2022-05-10] MEDS: Saccharomyces Boulardii (Probiotic) 250 MG Cap PO SCH ×2 (09:07→20:59)
[2022-05-10] MEDS: Insulin Lispro 100 Units/ML 3 ML Vial SUBCUT SCH ×3 (09:07→17:22)
[2022-05-10] MEDS: Brimonidine 0.2% Ophth Soln 5 ML Bottle EYERT SCH (09:12)
[2022-05-10] MEDS ORDERED: guaiFENesin 600 MG Tab.ER PO ONE (11:00)
[2022-05-10] MEDS ORDERED: Furosemide 20 MG/2 ML VIAL IVPUSH ONE (11:15)
[2022-05-10] MEDS: OPTH EYERT SCH ×2 (12:30→21:07)
[2022-05-10] MEDS: BRIMONIDINE 0.1% EYERT SCH ×2 (12:30→21:07)
[2022-05-10] MEDS ORDERED: Famotidine 20 MG/2 ML SDV IVPUSH ONE (14:42)
[2022-05-10] MEDS: Albuterol/Ipratropium 3.0-0.5 MG/3 ML Neb Soln NEB SCH (20:15)
[2022-05-10] MEDS: cefTRIAXone 1 GM Vial IVPUSH SCH (20:53)
[2022-05-10] MEDS: rOPINIRole 0.25 MG Tab PO SCH (20:59)
[2022-05-10] MEDS: Melatonin 3 MG Tab PO SCH (21:01)
[2022-05-10] MEDS: guaiFENesin 600 MG Tab.ER PO SCH (21:01)
[2022-05-10] MEDS: Formoterol/Mometasone 200-5 MCG 8.8 GM Inhaler IH SCH (21:01)
[2022-05-10] MEDS: IPRATROPIUM BROMIDE 0.03% NASBOTH SCH (21:08)
[2022-05-10] MEDS: BIMATOPROST EYEBOTH SCH (21:10)
[2022-05-11] MEDS: Sodium Chloride 0.9% 10 ML Syringe FLUSH PRN ×3 (00:33→20:23)
[2022-05-11] MEDS: methylPREDNISolone Sodium Succinate 125 MG/2 ML SDV IVPUSH SCH ×3 (00:33→17:35)
[2022-05-11] MEDS: Levothyroxine 25 MCG Tab PO SCH (05:32)
[2022-05-11] MEDS: Formoterol/Mometasone 200-5 MCG 8.8 GM Inhaler IH SCH ×3 (05:35→17:39)
[2022-05-11 07:02] LABS: ANION GAP 10.9 mEq/L (7-13)
[2022-05-11] MEDS: Insulin Lispro 100 Units/ML 3 ML Vial SUBCUT SCH ×3 (09:10→17:38)
[2022-05-11] MEDS: Ferrous Sulfate 325 MG Tab PO SCH (09:17)
[2022-05-11] MEDS: Saccharomyces Boulardii (Probiotic) 250 MG Cap PO SCH ×2 (09:17→20:32)
[2022-05-11] MEDS: Vitamin E (dl-alpha-tocopherol acetate) 400 Unit Cap PO SCH (09:17)
[2022-05-11] MEDS: Albuterol/Ipratropium 3.0-0.5 MG/3 ML Neb Soln NEB SCH ×2 (09:17→19:49)
[2022-05-11] MEDS: Furosemide 20 MG Tab PO SCH (09:17)
[2022-05-11] MEDS: Cyanocobalamin (Vitamin B12) 100 MCG Tab PO SCH (09:17)
[2022-05-11] MEDS: IPRATROPIUM BROMIDE 0.03% NASBOTH SCH ×3 (09:18→20:38)
[2022-05-11] MEDS: guaiFENesin 600 MG Tab.ER PO SCH ×2 (09:18→20:32)
[2022-05-11] MEDS: Calcium Carbonate 500 MG Tab.Chew PO SCH (09:18)
[2022-05-11] MEDS: BRIMONIDINE 0.1% EYERT SCH ×2 (09:18→20:39)
[2022-05-11] MEDS: OPTH EYERT SCH ×2 (09:18→20:39)
[2022-05-11] MEDS: Azithromycin 500 MG in Sodium Chloride 0.9% 250 ML IV SCH (09:23)
[2022-05-11] MEDS: Potassium Chloride 10 MEQ Tab.ER PO SCH (14:35)
[2022-05-11] MEDS ORDERED: Calcium Carbonate 500 MG Tab.Chew PO ONE (17:37)
[2022-05-11] MEDS ORDERED: Famotidine 20 MG/2 ML SDV IVPUSH ONE (17:37)
[2022-05-11] MEDS ORDERED: GI Cocktail Oral Solution 30 ML PO PRN (19:51)
[2022-05-11] MEDS: cefTRIAXone 1 GM Vial IVPUSH SCH (20:27)
[2022-05-11] MEDS: rOPINIRole 0.25 MG Tab PO SCH (20:31)
[2022-05-11] MEDS: Melatonin 3 MG Tab PO SCH (20:32)
[2022-05-11] MEDS: BIMATOPROST EYEBOTH SCH (20:37)
[2022-05-11] MEDS ORDERED: Pantoprazole 40 MG Vial IVPUSH ONE (21:00)
[2022-05-12] MEDS: Sodium Chloride 0.9% 10 ML Syringe FLUSH PRN (00:23)
[2022-05-12] MEDS: methylPREDNISolone Sodium Succinate 125 MG/2 ML SDV IVPUSH SCH ×4 (00:24→20:34)
[2022-05-12] MEDS: Pantoprazole 40 MG Tab.CR PO SCH ×2 (06:22→17:27)
[2022-05-12] MEDS: Levothyroxine 25 MCG Tab PO SCH (06:22)
[2022-05-12] MEDS: Albuterol/Ipratropium 3.0-0.5 MG/3 ML Neb Soln NEB SCH ×2 (06:24→18:17)
[2022-05-12] MEDS: Formoterol/Mometasone 200-5 MCG 8.8 GM Inhaler IH SCH ×2 (06:32→17:30)
[2022-05-12 06:53] LABS: ANION GAP 6.2 mEq/L (7-13)
[2022-05-12] MEDS: Insulin Lispro 100 Units/ML 3 ML Vial SUBCUT SCH ×3 (08:29→17:26)
[2022-05-12] MEDS: Ferrous Sulfate 325 MG Tab PO SCH (08:37)
[2022-05-12] MEDS: Furosemide 20 MG Tab PO SCH (08:38)
[2022-05-12] MEDS: Cyanocobalamin (Vitamin B12) 100 MCG Tab PO SCH (08:39)
[2022-05-12] MEDS: Saccharomyces Boulardii (Probiotic) 250 MG Cap PO SCH ×2 (08:39→20:27)
[2022-05-12] MEDS: guaiFENesin 600 MG Tab.ER PO SCH ×2 (08:40→20:28)
[2022-05-12] MEDS: Vitamin E (dl-alpha-tocopherol acetate) 400 Unit Cap PO SCH (08:40)
[2022-05-12] MEDS: Potassium Chloride 10 MEQ Tab.ER PO SCH (08:41)
[2022-05-12] MEDS: Calcium Carbonate 500 MG Tab.Chew PO SCH (08:42)
[2022-05-12] MEDS: BRIMONIDINE 0.1% EYERT SCH ×2 (08:43→20:41)
[2022-05-12] MEDS: OPTH EYERT SCH ×2 (08:43→20:41)
[2022-05-12] MEDS: IPRATROPIUM BROMIDE 0.03% NASBOTH SCH ×3 (08:44→20:41)
[2022-05-12] MEDS: Azithromycin 500 MG in Sodium Chloride 0.9% 250 ML IV SCH (08:51)
[2022-05-12] MEDS ORDERED: Levofloxacin/Dextrose 5%-Water 500 MG in Premix Bag 1 BAG IV ONE (14:00)
[2022-05-12] MEDS ORDERED: Insulin Regular, Human 100 Units/ML 3 ML Vial IV ONE (17:39)
[2022-05-12] MEDS: rOPINIRole 0.25 MG Tab PO SCH (20:26)
[2022-05-12] MEDS: Melatonin 3 MG Tab PO SCH (20:26)
[2022-05-12] MEDS: BIMATOPROST EYEBOTH SCH (20:41)
[2022-05-13] MEDS: Levothyroxine 25 MCG Tab PO SCH (05:28)
[2022-05-13] MEDS: Pantoprazole 40 MG Tab.CR PO SCH (05:28)
[2022-05-13 07:08] LABS: ANION GAP 10.2 mEq/L (7-13)
[2022-05-13] MEDS: Formoterol/Mometasone 200-5 MCG 8.8 GM Inhaler IH SCH (09:02)
[2022-05-13] MEDS: Vitamin E (dl-alpha-tocopherol acetate) 400 Unit Cap PO SCH (09:03)
[2022-05-13] MEDS: Calcium Carbonate 500 MG Tab.Chew PO SCH (09:03)
[2022-05-13] MEDS: Cyanocobalamin (Vitamin B12) 100 MCG Tab PO SCH (09:04)
[2022-05-13] MEDS: Furosemide 20 MG Tab PO SCH (09:04)
[2022-05-13] MEDS: Potassium Chloride 10 MEQ Tab.ER PO SCH (09:04)
[2022-05-13] MEDS: Saccharomyces Boulardii (Probiotic) 250 MG Cap PO SCH (09:04)
[2022-05-13] MEDS: Ferrous Sulfate 325 MG Tab PO SCH (09:04)
[2022-05-13] MEDS: guaiFENesin 600 MG Tab.ER PO SCH (09:05)
[2022-05-13] MEDS: IPRATROPIUM BROMIDE 0.03% NASBOTH SCH ×2 (09:06→13:30)
[2022-05-13] MEDS: methylPREDNISolone Sodium Succinate 125 MG/2 ML SDV IVPUSH SCH (09:07)
[2022-05-13] MEDS: OPTH EYERT SCH (09:08)
[2022-05-13] MEDS: BRIMONIDINE 0.1% EYERT SCH (09:08)
[2022-05-13] MEDS: Insulin Lispro 100 Units/ML 3 ML Vial SUBCUT SCH ×2 (09:52→12:24)
[2022-05-13 13:46] VITALS: BP 120/70; PULSE 66
== END 2022-05-13 16:40 | disposition home or self-care (01) | DRG 177 ==
LOC: DL.ED 16:15 → DL.MS 17:33 → DL.ED 17:57
PROVIDERS: ADMIT Internal Medicine; ATTEND Internal Medicine
DX: J69.0 Pneumonitis due to inhalation of food and vomit (principal); J15.6 Pneumonia due to other Gram-negative bacteria; J96.01 Acute respiratory failure with hypoxia; J96.02 Acute respiratory failure with hypercapnia; R44.0 Auditory hallucinations; J98.11 Atelectasis; J44.1 Chronic obstructive pulmonary disease with (acute) exacerbation; J44.0 Chronic obstructive pulmonary disease with (acute) lower respiratory infection; E87.20 Acidosis, unspecified; N17.9 Acute kidney failure, unspecified; J15.0 Pneumonia due to Klebsiella pneumoniae; Z20.822 Contact with and (suspected) exposure to COVID-19; H40.9 Unspecified glaucoma; H91.90 Unspecified hearing loss, unspecified ear; J44.9 Chronic obstructive pulmonary disease, unspecified; R91.8 Other nonspecific abnormal finding of lung field; F17.210 Nicotine dependence, cigarettes, uncomplicated; I27.20 Pulmonary hypertension, unspecified; I34.0 Nonrheumatic mitral (valve) insufficiency; E03.9 Hypothyroidism, unspecified; D50.9 Iron deficiency anemia, unspecified; G47.00 Insomnia, unspecified; G25.81 Restless legs syndrome; R77.8 Other specified abnormalities of plasma proteins; B96.1 Klebsiella pneumoniae [K. pneumoniae] as the cause of diseases classified elsewhere; R73.9 Hyperglycemia, unspecified; E88.09 Other disorders of plasma-protein metabolism, not elsewhere classified; Z79.890 Hormone replacement therapy; Z79.899 Other long term (current) drug therapy; R09.89 Other specified symptoms and signs involving the circulatory and respiratory systems; Z79.51 Long term (current) use of inhaled steroids; Z79.52 Long term (current) use of systemic steroids; Z79.82 Long term (current) use of aspirin; I50.9 Heart failure, unspecified
CPT/HCPCS: 0241U; 36415; 71045; 80048; 80053; 80061; 82306; 82947; 83605; 83735; 83880; 84439; 84443; 84484; 85025; 85610; 85730; 86140; 87040; 87070; 87077; 87186; 87205; 93005; 94640; 96365; 96375; 97110-GP; 97161-GP; 97165-GO; 97530-GO; 97530-GP; 97535-GO; 99215; 99223; 99232; 99233; 99238; 99285-25; A9270-GY; C9113; J0456; J0696; J1940; J1956; J2930; J3490; J7030; J7050; J7120; J7620-GY

== ENCOUNTER 2022-05-16 02:53 | Emergency (ER) | payer MEDICARE, OTHER ==
[2022-05-16] MEDS ORDERED: fentaNYL 100 MCG/2 ML SDV IVPUSH ONE (03:11)
[2022-05-16] MEDS ORDERED: Sodium Chloride 0.9% 10 ML Syringe FLUSH PRN (03:11)
[2022-05-16 03:36] VITALS: BP 111/76; PULSE 75
[2022-05-16 03:37] LABS: PTT,PARTIAL THROMBOPLSTIN TIME 22.7 SEC (22.0-34.0)
[2022-05-16 03:43] LABS: ANION GAP 4.8 mEq/L (7-13)
== END 2022-05-16 07:03 | disposition home or self-care (01) ==
LOC: DL.ED 02:53
DX: R07.89 Other chest pain (principal); J44.9 Chronic obstructive pulmonary disease, unspecified; E03.9 Hypothyroidism, unspecified; Z79.899 Other long term (current) drug therapy
CPT/HCPCS: 36415; 80053; 83880; 84484; 85025; 85610; 85730; 93005; 96374; 99213; 99285-25; J3010; J3490

== ENCOUNTER 2022-05-20 18:27 | Emergency (ER) | payer MEDICARE, OTHER ==
[2022-05-20] MEDS ORDERED: Sodium Chloride 0.9% 10 ML Syringe FLUSH PRN (18:48)
[2022-05-20 19:24] LABS: PTT,PARTIAL THROMBOPLSTIN TIME 22.7 SEC (22.0-34.0)
[2022-05-20 19:27] LABS: ANION GAP 7.7 mEq/L (7-13)
[2022-05-20 19:42] LABS: CORONAVIRUS COVID-19 NAA NEGATIVE (NEGATIVE); RESPIRATORY SYNCYTIAL VIR NAA NEGATIVE (NEGATIVE)
[2022-05-20 20:00] VITALS: BP 115/79; PULSE 71
== END 2022-05-20 21:30 | disposition home or self-care (01) ==
LOC: DL.ED 18:27
DX: R53.1 Weakness (principal); J44.9 Chronic obstructive pulmonary disease, unspecified; E03.9 Hypothyroidism, unspecified; N40.0 Benign prostatic hyperplasia without lower urinary tract symptoms; Z79.899 Other long term (current) drug therapy; Z20.822 Contact with and (suspected) exposure to COVID-19
CPT/HCPCS: 0241U; 36415; 70450; 80053; 81003; 83605; 83880; 84484; 85025; 85610; 85730; 93005; 99285; J3490

== ENCOUNTER 2022-10-23 11:46 | Emergency (ER) | payer MEDICARE, OTHER ==
[2022-10-23 12:25] LABS: BASOPHILS PERCENT AUTO 0.5 % (0.0-1.0); EOSINOPHILS PERCENT AUTO 1.6 % (1.0-3.0); HEMATOCRIT 28.8 % (40.0-54.0); HEMOGLOBIN 9.2 g/dL (14.0-18.0); LYMPHOCYTES PERCENT AUTO 13.9 % (20.5-50.1); MEAN CORPUSCULAR HEMOGLOBIN 29.4 pg (27.0-34.0); MEAN CORPUSCULAR HGB CONC 31.9 g/dL (33.0-35.0); MONOCYTES PERCENT AUTO 12.3 % (2-8); NEUTROPHILS PERCENT AUTO 71.7 % (42.2-75.2); PLATELET COUNT,PLT 516 10^3/uL (150-450); RED BLOOD CELL COUNT 3.13 10^6/uL (4.6-6.2); WHITE BLOOD CELL COUNT,WBC 10.9 10^3/uL (5.0-10.0)
[2022-10-23] MEDS ORDERED: Sodium Chloride 0.9% 1,000 ML IV ONE (12:32)
[2022-10-23] MEDS ORDERED: Albuterol/Ipratropium 3.0-0.5 MG/3 ML Neb Soln NEB ONE (12:38)
[2022-10-23 12:39] LABS: ALANINE AMINOTRANSFERASE,ALT 16 U/L (16-63); ALBUMIN 3.1 g/dL (3.4-5.0); ALKALINE PHOSPHATASE 76 U/L (46-116); AMYLASE 43 U/L (25-115); ANION GAP 12.5 mEq/L (7-13); ASPARTATE AMNIOTRANSFERASE,AST 13 U/L (15-37); BILIRUBIN TOTAL 0.6 mg/dL (0.2-1.0); BLOOD UREA NITROGEN,BUN 19 mg/dL (7-18); BUN/CREATININE RATIO 18.6 (No establ ref range); CALCIUM 8.7 mg/dL (8.5-10.1); CARBON DIOXIDE,CO2 33 mmol/L (21-32); CHLORIDE,CL 96 mmol/L (98-107); CREATININE 1.02 mg/dL (0.70-1.30); EST CRCL DRUG DOSING (CG) 40.34 mL/min; GLUCOSE RANDOM 95 mg/dL (70-99); LACTIC ACID 1.7 mmol/L (0.4-2.0); LIPASE 11 U/L (73-393); MAGNESIUM 1.9 mg/dL (1.8-2.4); POTASSIUM,K 4.5 mmol/L (3.5-5.1); PROTEIN TOTAL,TP 6.9 g/dL (6.4-8.2); SODIUM,NA 137 mmol/L (136-145)
[2022-10-23 12:42] LABS: B-TYPE NATRIURETIC PEPTIDE,BNP 78 pg/ml (0-100)
[2022-10-23 12:48] LABS: A/G RATIO 0.82; C-REACTIVE PROTEIN < 0.2 mg/dL (0.0-0.9); ESTIMATED GFR 71 mL/min (>=60); ETHANOL BLOOD MEDICAL < 3 mg/dL (0)
[2022-10-23 12:52] LABS: AMPHETAMINES,URINE NEGATIVE (NEGATIVE); BARBITURATES,URINE NEGATIVE (NEGATIVE); BENZODIAZEPINE,URINE NEGATIVE (NEGATIVE); MDMA (ECSTASY), URINE NEGATIVE (NEGATIVE); METHADONE,URINE NEGATIVE (NEGATIVE); METHAMPHETAMINES,URINE NEGATIVE (NEGATIVE); OPIATES,URINE NEGATIVE (NEGATIVE); OXYCODONE,URINE NEGATIVE (NEGATIVE); PHENCYCLIDINE,URINE NEGATIVE (NEGATIVE); TCA,URINE NEGATIVE (NEGATIVE)
[2022-10-23 12:53] LABS: APPEARANCE,URINE CLEAR (CLEAR); BILIRUBIN,URINE NEGATIVE (NEGATIVE); COLOR,URINE YELLOW (YELLOW); GLUCOSE,URINE NEGATIVE (NEGATIVE); KETONES,URINE NEGATIVE (NEGATIVE); LEUKOCYTE ESTERASE,URINE NEGATIVE (NEGATIVE); NITRITE,URINE NEGATIVE (NEGATIVE); OCCULT BLOOD,URINE NEGATIVE (NEGATIVE); PH,URINE 5.5 (5.0-9.0); PROTEIN,URINE NEGATIVE (NEGATIVE); UROBILINOGEN,URINE 0.2 mg/dL (0.2-1.0)
[2022-10-23 13:02] LABS: PROTHROMBIN TIME 9.8 SEC (9.0-12.0); PTT,PARTIAL THROMBOPLSTIN TIME 25.4 SEC (22.0-34.0)
[2022-10-23] MEDS ORDERED: methylPREDNISolone Sodium Succinate 125 MG/2 ML SDV IVPUSH ONE (13:22)
[2022-10-23] MEDS ORDERED: Azithromycin 500 MG in Sodium Chloride 0.9% 250 ML IV ONE (13:27)
[2022-10-23] MEDS ORDERED: cefTRIAXone 2 GM Vial IVPUSH ONE (14:53)
[2022-10-23 15:07] VITALS: BP 117/72; PULSE 74
== END 2022-10-23 15:24 | disposition home or self-care (01) ==
LOC: DL.ED 11:46
DX: J90 Pleural effusion, not elsewhere classified (principal); J98.11 Atelectasis; J69.0 Pneumonitis due to inhalation of food and vomit; J44.9 Chronic obstructive pulmonary disease, unspecified; E03.9 Hypothyroidism, unspecified; Z20.822 Contact with and (suspected) exposure to COVID-19; Z79.899 Other long term (current) drug therapy
CPT/HCPCS: 36415; 71045; 80053; 80305; 80307; 81003; 82150; 83605; 83690; 83735; 83880; 84484; 85025; 85610; 85730; 86140; 93005; 93010; 94640; 96361; 96365; 96375; 99284; 99285; J0456; J0696; J2930; J7030; J7050; U0002; J7620-GY

== ENCOUNTER 2023-03-22 15:31 | Inpatient (IN) | payer MEDICARE, OTHER ==
[2023-03-22] MEDS ORDERED: Albuterol/Ipratropium 3.0-0.5 MG/3 ML Neb Soln NEB ONE (15:45)
[2023-03-22] MEDS: Sodium Chloride 0.9% 10 ML Syringe FLUSH PRN (15:48)
[2023-03-22 16:02] LABS: HEMATOCRIT 25.9 % (40.0-54.0); HEMOGLOBIN 8.1 g/dL (14.0-18.0); MEAN CORPUSCULAR HEMOGLOBIN 27.2 pg (27.0-34.0); MEAN CORPUSCULAR HGB CONC 31.3 g/dL (33.0-35.0); MEAN CORPUSCULAR VOLUME 86.9 fL (80-100); PLATELET COUNT,PLT 629 10^3/uL (150-450); RED BLOOD CELL COUNT 2.98 10^6/uL (4.6-6.2); WHITE BLOOD CELL COUNT,WBC 8.9 10^3/uL (5.0-10.0)
[2023-03-22 16:06] LABS: BASOPHILS PERCENT AUTO 0.2 % (0.0-1.0); EOSINOPHILS PERCENT AUTO 1.1 % (1.0-3.0); LYMPHOCYTES PERCENT AUTO 14.2 % (20.5-50.1); MONOCYTES PERCENT AUTO 13.7 % (2-8); NEUTROPHILS PERCENT AUTO 70.8 % (42.2-75.2)
[2023-03-22 16:21] LABS: ALANINE AMINOTRANSFERASE,ALT 14 U/L (16-63); ALBUMIN 2.1 g/dL (3.4-5.0); ALKALINE PHOSPHATASE 80 U/L (46-116); ASPARTATE AMNIOTRANSFERASE,AST 11 U/L (15-37); BILIRUBIN TOTAL 0.5 mg/dL (0.2-1.0); BLOOD UREA NITROGEN,BUN 20 mg/dL (7-18); BUN/CREATININE RATIO 17.4 (No establ ref range); C-REACTIVE PROTEIN 3.08 ng/dL (<=0.30); CARBON DIOXIDE,CO2 32 mmol/L (21-32); CHLORIDE,CL 103 mmol/L (98-107); CREATININE 1.15 mg/dL (0.70-1.30); GLUCOSE RANDOM 76 mg/dL (70-99); MAGNESIUM 1.7 mg/dL (1.8-2.4); PROTEIN TOTAL,TP 6.2 g/dL (6.4-8.2); SODIUM,NA 140 mmol/L (136-145)
[2023-03-22 16:27] LABS: B-TYPE NATRIURETIC PEPTIDE,BNP 129 pg/ml (0-100)
[2023-03-22 16:28] LABS: A/G RATIO 0.51; ESTIMATED GFR 61 mL/min (>=60)
[2023-03-22 16:29] LABS: LACTIC ACID 2.1 mmol/L (0.4-2.0)
[2023-03-22 16:30] LABS: EOSINOPHILS PERCENT MAN 2 % (1-3); LYMPHOCYTES PERCENT MAN 13 % (20-50); MONOCYTES PERCENT MAN 8 % (2-8); SEG NEUTROPHILS PERCENT MAN 77 % (42-75)
[2023-03-22] MEDS ORDERED: Piperacillin/Tazobactam 4.5 GM in Sodium Chloride 0.9% 100 ML IV ONE (16:32)
[2023-03-22 16:40] LABS: CORONAVIRUS COVID-19 NAA NEGATIVE (NEGATIVE); INFLUENZA A NAA NEGATIVE (NEGATIVE); INFLUENZA B NAA NEGATIVE (NEGATIVE)
[2023-03-22] MEDS ORDERED: Azithromycin 500 MG in Sodium Chloride 0.9% 250 ML IV ONE (16:44)
[2023-03-22] MEDS ORDERED: Albuterol/Ipratropium 3.0-0.5 MG/3 ML Neb Soln NEB PRN (17:59)
[2023-03-22] MEDS ORDERED: Ondansetron 4 MG/2 ML SDV IVPUSH PRN (17:59)
[2023-03-22] MEDS ORDERED: Acetaminophen/HYDROcodone 325-5 MG Tab PO PRN (17:59)
[2023-03-22] MEDS ORDERED: Acetaminophen 325 MG Tab PO PRN (17:59)
[2023-03-22] MEDS ORDERED: Docusate Sodium 100 MG Cap PO PRN (17:59)
[2023-03-22] MEDS ORDERED: Bisacodyl 5 MG Tab PO PRN (17:59)
[2023-03-22] MEDS ORDERED: Melatonin 3 MG Tab PO PRN (18:02)
[2023-03-22] MEDS ORDERED: 50% Dextrose in Water 50 ML Syringe IVPUSH PRN (18:06)
[2023-03-22] MEDS ORDERED: Glucagon,Human Recombinant 1 MG Vial IM PRN (18:06)
[2023-03-22] MEDS: methylPREDNISolone Sodium Succinate 40 MG/1 ML SDV IVPUSH SCH (20:55)
[2023-03-22] MEDS: Potassium Chloride 10 MEQ Tab.ER PO SCH (20:57)
[2023-03-22] MEDS: Insulin Lispro 100 Units/ML 3 ML Vial SUBCUT SCH (20:57)
[2023-03-23] MEDS: Piperacillin/Tazobactam 3.375 GM in Sodium Chloride 0.9% 100 ML IV SCH ×5 (02:03→23:40)
[2023-03-23] MEDS: methylPREDNISolone Sodium Succinate 40 MG/1 ML SDV IVPUSH SCH ×3 (04:37→20:41)
[2023-03-23] MEDS: Budesonide 0.5 MG/2 ML Neb Susp NEB SCH ×3 (05:28→18:29)
[2023-03-23 06:52] LABS: BASOPHILS PERCENT AUTO 0.2 % (0.0-1.0); HEMATOCRIT 27.5 % (40.0-54.0); HEMOGLOBIN 8.5 g/dL (14.0-18.0); LYMPHOCYTES PERCENT AUTO 10.6 % (20.5-50.1); MEAN CORPUSCULAR HEMOGLOBIN 26.7 pg (27.0-34.0); MEAN CORPUSCULAR HGB CONC 30.9 g/dL (33.0-35.0); MEAN CORPUSCULAR VOLUME 86.5 fL (80-100); MONOCYTES PERCENT AUTO 2.4 % (2-8); NEUTROPHILS PERCENT AUTO 86.8 % (42.2-75.2); PLATELET COUNT,PLT 766 10^3/uL (150-450); RED BLOOD CELL COUNT 3.18 10^6/uL (4.6-6.2); WHITE BLOOD CELL COUNT,WBC 5.7 10^3/uL (5.0-10.0)
[2023-03-23 07:01] LABS: ANION GAP 12.1 mEq/L (7-13); CALCIUM 8.2 mg/dL (8.5-10.1); CREATININE 1.13 mg/dL (0.70-1.30); EST CRCL DRUG DOSING (CG) 37.69 mL/min; POTASSIUM,K 4.1 mmol/L (3.5-5.1)
[2023-03-23] MEDS: Insulin Lispro 100 Units/ML 3 ML Vial SUBCUT SCH ×4 (08:01→20:53)
[2023-03-23] MEDS: Furosemide 20 MG Tab PO SCH ×2 (08:31→13:45)
[2023-03-23] MEDS: Azithromycin 250 MG Tab PO SCH (08:32)
[2023-03-23] MEDS: Enoxaparin 40 MG/0.4 ML Syringe SUBCUT SCH ×2 (08:33→08:36)
[2023-03-23 08:38] LABS: PERCENT FE SATURATION 4.3 % (20.0-50.0)
[2023-03-23] MEDS: Albuterol/Ipratropium 3.0-0.5 MG/3 ML Neb Soln NEB SCH ×3 (11:27→18:29)
[2023-03-23] MEDS: Ferrous Sulfate 325 MG Tab PO SCH (12:28)
[2023-03-23] MEDS: Potassium Chloride 10 MEQ Tab.ER PO SCH (20:40)
[2023-03-23] MEDS: Sodium Chloride 0.9% 10 ML Syringe FLUSH PRN ×2 (20:40→23:40)
[2023-03-24] MEDS: Sodium Chloride 0.9% 10 ML Syringe FLUSH PRN ×2 (03:40→05:44)
[2023-03-24] MEDS: methylPREDNISolone Sodium Succinate 40 MG/1 ML SDV IVPUSH SCH ×2 (03:40→12:22)
[2023-03-24] MEDS: Budesonide 0.5 MG/2 ML Neb Susp NEB SCH (05:10)
[2023-03-24] MEDS: Albuterol/Ipratropium 3.0-0.5 MG/3 ML Neb Soln NEB SCH (05:10)
[2023-03-24] MEDS: Piperacillin/Tazobactam 3.375 GM in Sodium Chloride 0.9% 100 ML IV SCH ×2 (05:44→12:32)
[2023-03-24 06:35] LABS: HEMATOCRIT 25.8 % (40.0-54.0); HEMOGLOBIN 8.2 g/dL (14.0-18.0); LYMPHOCYTES PERCENT AUTO 8.5 % (20.5-50.1); MEAN CORPUSCULAR HGB CONC 31.8 g/dL (33.0-35.0); MEAN CORPUSCULAR VOLUME 84.9 fL (80-100); MONOCYTES PERCENT AUTO 3.5 % (2-8); PLATELET COUNT,PLT 736 10^3/uL (150-450); RED BLOOD CELL COUNT 3.04 10^6/uL (4.6-6.2); WHITE BLOOD CELL COUNT,WBC 9.1 10^3/uL (5.0-10.0)
[2023-03-24 06:51] LABS: ANION GAP 12.2 mEq/L (7-13); CALCIUM 8.1 mg/dL (8.5-10.1); CREATININE 1.27 mg/dL (0.70-1.30); EST CRCL DRUG DOSING (CG) 33.44 mL/min; POTASSIUM,K 4.2 mmol/L (3.5-5.1)
[2023-03-24] MEDS: Azithromycin 250 MG Tab PO SCH (08:18)
[2023-03-24] MEDS: Ferrous Sulfate 325 MG Tab PO SCH (08:18)
[2023-03-24] MEDS: Furosemide 20 MG Tab PO SCH ×2 (08:18→14:13)
[2023-03-24] MEDS: Insulin Lispro 100 Units/ML 3 ML Vial SUBCUT SCH ×2 (08:18→12:22)
[2023-03-24] MEDS: Enoxaparin 40 MG/0.4 ML Syringe SUBCUT SCH (08:18)
[2023-03-24 16:55] VITALS: BP 137/67; PULSE 85
== END 2023-03-24 16:40 | disposition home health service (06) | DRG 194 ==
LOC: DL.ED 15:31 → DL.MS 17:08
PROVIDERS: ADMIT Internal Medicine; ATTEND Internal Medicine
DX: J18.9 Pneumonia, unspecified organism (principal); J44.0 Chronic obstructive pulmonary disease with (acute) lower respiratory infection; J96.11 Chronic respiratory failure with hypoxia; J44.1 Chronic obstructive pulmonary disease with (acute) exacerbation; I50.9 Heart failure, unspecified; Z66 Do not resuscitate; H91.90 Unspecified hearing loss, unspecified ear; Z20.822 Contact with and (suspected) exposure to COVID-19; H40.9 Unspecified glaucoma; J44.9 Chronic obstructive pulmonary disease, unspecified; I47.10 Supraventricular tachycardia, unspecified; D50.9 Iron deficiency anemia, unspecified; I11.0 Hypertensive heart disease with heart failure; I10 Essential (primary) hypertension; Z90.49 Acquired absence of other specified parts of digestive tract; Z98.49 Cataract extraction status, unspecified eye; E03.9 Hypothyroidism, unspecified; N40.0 Benign prostatic hyperplasia without lower urinary tract symptoms; Z99.81 Dependence on supplemental oxygen; Z79.899 Other long term (current) drug therapy
CPT/HCPCS: 0240U; 36415; 71045; 80048; 80053; 82728; 82947; 83540; 83550; 83605; 83735; 83880; 85025; 86140; 87040; 93005; 93010; 94010; 94060; 94640; 94667; 94668; 94762; 96374; 97161-GP; 97165-GO; 99284; 99285-25; A9270-GY; J0456; J1650; J1815-GY; J2543; J2920; J3490; J7050; J7620-GY

== ENCOUNTER 2023-04-20 07:12 | Day surgery (SDC) | payer MEDICARE, OTHER ==
[2023-04-20] MEDS ORDERED: Dextrose 5%-0.45% NaCl 1,000 ML IV SCH (07:30)
[2023-04-20 09:32] VITALS: BP 100/62; PULSE 68
== END 2023-04-20 09:50 | disposition home or self-care (01) ==
LOC: DL.ENDO 07:12
PROVIDERS: ATTEND Internal Medicine Gastroenterology
DX: D50.9 Iron deficiency anemia, unspecified (principal); K29.70 Gastritis, unspecified, without bleeding; E03.9 Hypothyroidism, unspecified; J44.9 Chronic obstructive pulmonary disease, unspecified; M62.84 Sarcopenia; Z98.890 Other specified postprocedural states; Z98.0 Intestinal bypass and anastomosis status; Z80.0 Family history of malignant neoplasm of digestive organs; Z90.49 Acquired absence of other specified parts of digestive tract
CPT/HCPCS: 87077; J7042

== ENCOUNTER 2023-09-22 11:39 | Emergency (ER) | payer MEDICARE, OTHER ==
[2023-09-22] MEDS: Acetaminophen/HYDROcodone 325-10 MG Tab PO ONE (12:00)
[2023-09-22 12:02] VITALS: BP 109/61; PULSE 74
[2023-09-22 12:14] LABS: BASOPHILS PERCENT AUTO 0.4 % (0.0-1.0); EOSINOPHILS PERCENT AUTO 0.5 % (1.0-3.0); HEMOGLOBIN 7.9 g/dL (14.0-18.0); LYMPHOCYTES PERCENT AUTO 6.5 % (20.5-50.1); MEAN CORPUSCULAR HGB CONC 31.6 g/dL (33.0-35.0); MEAN CORPUSCULAR VOLUME 95.1 fL (80-100); MONOCYTES PERCENT AUTO 10.2 % (2-8); NEUTROPHILS PERCENT AUTO 82.4 % (42.2-75.2); PLATELET COUNT,PLT 241 10^3/uL (150-450); RED BLOOD CELL COUNT 2.63 10^6/uL (4.6-6.2); WHITE BLOOD CELL COUNT,WBC 12.7 10^3/uL (5.0-10.0)
[2023-09-22 12:28] LABS: B-TYPE NATRIURETIC PEPTIDE,BNP 233 pg/ml (0-100)
[2023-09-22] MEDS: Ketorolac 30 MG/ML SDV IM ONE (12:34)
[2023-09-22 12:35] LABS: ALANINE AMINOTRANSFERASE,ALT 15 U/L (16-63); ALBUMIN 2.1 g/dL (3.4-5.0); ALKALINE PHOSPHATASE 135 U/L (46-116); ANION GAP 9.7 mEq/L (7-13); ASPARTATE AMNIOTRANSFERASE,AST 12 U/L (15-37); BILIRUBIN TOTAL 0.5 mg/dL (0.2-1.0); BLOOD UREA NITROGEN,BUN 25 mg/dL (7-18); BUN/CREATININE RATIO 22.3 (No establ ref range); CALCIUM 7.8 mg/dL (8.5-10.1); CARBON DIOXIDE,CO2 33 mmol/L (21-32); CHLORIDE,CL 104 mmol/L (98-107); CREATININE 1.12 mg/dL (0.70-1.30); GLUCOSE RANDOM 99 mg/dL (70-99); MAGNESIUM 1.8 mg/dL (1.8-2.4); POTASSIUM,K 3.7 mmol/L (3.5-5.1); PROTEIN TOTAL,TP 5.8 g/dL (6.4-8.2); SODIUM,NA 143 mmol/L (136-145)
[2023-09-22 12:40] LABS: A/G RATIO 0.57; ESTIMATED GFR 63 mL/min (>=60)
[2023-09-22 13:01] LABS: APPEARANCE,URINE CLEAR (CLEAR); BILIRUBIN,URINE NEGATIVE (NEGATIVE); COLOR,URINE YELLOW (YELLOW); GLUCOSE,URINE NEGATIVE (NEGATIVE); KETONES,URINE NEGATIVE (NEGATIVE); LEUKOCYTE ESTERASE,URINE NEGATIVE (NEGATIVE); NITRITE,URINE NEGATIVE (NEGATIVE); OCCULT BLOOD,URINE NEGATIVE (NEGATIVE); PH,URINE 5.5 (5.0-9.0); PROTEIN,URINE NEGATIVE (NEGATIVE); UROBILINOGEN,URINE 0.2 mg/dL (0.2-1.0)
== END 2023-09-22 14:29 ==
LOC: DL.ED 11:39
DX: S22.089A Unspecified fracture of T11-T12 vertebra, initial encounter for closed fracture (principal); S12.9XXA Fracture of neck, unspecified, initial encounter; D64.9 Anemia, unspecified; I50.9 Heart failure, unspecified; J44.9 Chronic obstructive pulmonary disease, unspecified; E03.9 Hypothyroidism, unspecified; Z79.899 Other long term (current) drug therapy; Z79.51 Long term (current) use of inhaled steroids; Z86.19 Personal history of other infectious and parasitic diseases; Z90.49 Acquired absence of other specified parts of digestive tract; X58.XXXA Exposure to other specified factors, initial encounter
CPT/HCPCS: 36415; 71045; 72100; 73502; 73562; 80053; 81003; 83735; 83880; 84484; 85025; 93005; 96372; 99285; A9270; J1885

== ENCOUNTER 2023-09-28 09:03 | Inpatient (IN) | payer MEDICARE, OTHER ==
[2023-09-28] MEDS ORDERED: Magnesium Hydroxide 400 MG/5 ML Susp 30 ML Cup PO PRN (13:40)
[2023-09-28] MEDS ORDERED: Sennosides/Docusate Sodium 50-8.6 MG Tab PO PRN (13:40)
[2023-09-28] MEDS ORDERED: Albuterol/Ipratropium 3.0-0.5 MG/3 ML Neb Soln NEB PRN (13:40)
[2023-09-28] MEDS ORDERED: Ondansetron 4 MG Tab.DIS PO PRN (13:40)
[2023-09-28] MEDS ORDERED: Acetaminophen 325 MG Tab PO PRN (13:40)
[2023-09-28] MEDS ORDERED: Polyethylene Glycol 3350 Powder 17 GM Packet PO PRN (13:40)
[2023-09-28] MEDS ORDERED: Acetaminophen 500 MG Tab PO PRN (14:37)
[2023-09-28] MEDS ORDERED: PEPTO BISMOL PO PRN (15:10)
[2023-09-28] MEDS: Acetaminophen/oxyCODONE 325-5 MG Tab PO PRN (15:21)
[2023-09-28] MEDS: Calcium Carbonate 500 MG Tab.Chew PO SCH (17:20)
[2023-09-28] MEDS: Albuterol/Ipratropium 3.0-0.5 MG/3 ML Neb Soln INH SCH (17:35)
[2023-09-28] MEDS: Ipratropium 0.02% 0.5 MG/2.5 ML Neb Soln INH SCH (17:35)
[2023-09-28] MEDS: Formoterol/Mometasone 200-5 MCG 8.8 GM Inhaler IH SCH (17:35)
[2023-09-28] MEDS: rOPINIRole 0.25 MG Tab PO SCH (20:23)
[2023-09-28] MEDS: Melatonin 3 MG Tab PO SCH (20:23)
[2023-09-28] MEDS: Ferrous Sulfate 325 MG Tab PO SCH (20:23)
[2023-09-28] MEDS: BRIMONIDINE 0.1% EYERT SCH (20:26)
[2023-09-28] MEDS: BIMATOPROST 0.01% EYEBOTH SCH (20:27)
[2023-09-28] MEDS: Latanoprost 0.005% Ophth Soln 2.5 ML Bottle EYEBOTH SCH (20:28)
[2023-09-28] MEDS ORDERED: IPRATROPIUM INH SCH (21:00)
[2023-09-28] MEDS ORDERED: Albuterol/Ipratropium 3.0-0.5 MG/3 ML Neb Soln INH SCH (21:00)
[2023-09-28] MEDS ORDERED: [UNRECOGNIZED DRUG - OTHER] INH SCH (21:00)
[2023-09-28] MEDS ORDERED: Formoterol/Mometasone 200-5 MCG 8.8 GM Inhaler IH SCH (21:00)
[2023-09-29 06:30] LABS: BASOPHILS PERCENT AUTO 0.3 % (0.0-1.0); EOSINOPHILS PERCENT AUTO 1.8 % (1.0-3.0); HEMATOCRIT 25.4 % (40.0-54.0); LYMPHOCYTES PERCENT AUTO 8.7 % (20.5-50.1); MEAN CORPUSCULAR HEMOGLOBIN 29.6 pg (27.0-34.0); MEAN CORPUSCULAR HGB CONC 31.5 g/dL (33.0-35.0); MEAN CORPUSCULAR VOLUME 94.1 fL (80-100); MONOCYTES PERCENT AUTO 12.6 % (2-8); NEUTROPHILS PERCENT AUTO 76.6 % (42.2-75.2); PLATELET COUNT,PLT 510 10^3/uL (150-450); WHITE BLOOD CELL COUNT,WBC 9.6 10^3/uL (5.0-10.0)
[2023-09-29 06:51] LABS: ALANINE AMINOTRANSFERASE,ALT 18 U/L (16-63); ALBUMIN 2.4 g/dL (3.4-5.0); ALKALINE PHOSPHATASE 99 U/L (46-116); ANION GAP 7.7 mEq/L (7-13); ASPARTATE AMNIOTRANSFERASE,AST 21 U/L (15-37); BILIRUBIN TOTAL 0.7 mg/dL (0.2-1.0); BLOOD UREA NITROGEN,BUN 17 mg/dL (7-18); BUN/CREATININE RATIO 21.8 (No establ ref range); CALCIUM 7.7 mg/dL (8.5-10.1); CARBON DIOXIDE,CO2 33 mmol/L (21-32); CHLORIDE,CL 103 mmol/L (98-107); CREATININE 0.78 mg/dL (0.70-1.30); GLUCOSE RANDOM 92 mg/dL (70-99); MAGNESIUM 1.7 mg/dL (1.8-2.4); POTASSIUM,K 3.7 mmol/L (3.5-5.1); PROTEIN TOTAL,TP 5.4 g/dL (6.4-8.2); SODIUM,NA 140 mmol/L (136-145)
[2023-09-29 06:59] LABS: ESTIMATED GFR 85 mL/min (>=60)
[2023-09-29] MEDS: Cyanocobalamin (Vitamin B12) 1,000 MCG Tab PO SCH (09:02)
[2023-09-29] MEDS: Potassium Chloride 10 MEQ Tab.ER PO SCH (09:02)
[2023-09-29] MEDS: Calcium Carbonate/Vitamin D3 1250 MG-5 MCG Tab PO SCH (09:02)
[2023-09-29] MEDS: Vitamin E (dl-alpha-tocopherol acetate) 400 Unit Cap PO SCH (09:02)
[2023-09-29] MEDS: Ascorbic Acid 500 MG Tab PO SCH (09:02)
[2023-09-29] MEDS: Furosemide 20 MG Tab PO SCH (09:03)
[2023-09-29] MEDS: Pantoprazole 40 MG Tab.CR PO SCH (09:03)
[2023-09-29] MEDS: Citalopram 20 MG Tab PO SCH (09:03)
[2023-09-29] MEDS: Magnesium Oxide 400 MG Tab PO SCH (09:03)
[2023-09-29] MEDS: Levothyroxine 25 MCG Tab PO SCH (09:04)
[2023-09-29] MEDS: Enoxaparin 40 MG/0.4 ML Syringe SUBCUT SCH (09:04)
[2023-09-29] MEDS: Acetaminophen 500 MG Tab PO SCH (11:40)
[2023-09-29] MEDS: Ketorolac 30 MG/ML SDV IM PRN (19:58)
[2023-09-29] MEDS: rOPINIRole 0.25 MG Tab PO SCH (20:29)
[2023-09-29] MEDS: hydrOXYzine HCl 10 MG Tab PO SCH (20:29)
[2023-09-29] MEDS: Melatonin 3 MG Tab PO SCH (20:30)
[2023-09-30] MEDS: Ziprasidone Mesylate 20 MG Vial IM PRN (20:36)
[2023-10-01] MEDS: Patient's Own Medication 1 Each EYEBOTH PRN (09:38)
[2023-10-01] MEDS: Menthol 10%/Methyl Salicylate 15% 85 GM Tube TOP PRN (17:36)
[2023-10-02 06:50] LABS: BASOPHILS PERCENT AUTO 0.2 % (0.0-1.0); EOSINOPHILS PERCENT AUTO 0.9 % (1.0-3.0); HEMATOCRIT 28.8 % (40.0-54.0); HEMOGLOBIN 9.2 g/dL (14.0-18.0); LYMPHOCYTES PERCENT AUTO 6.3 % (20.5-50.1); MEAN CORPUSCULAR HEMOGLOBIN 30.3 pg (27.0-34.0); MEAN CORPUSCULAR HGB CONC 31.9 g/dL (33.0-35.0); MEAN CORPUSCULAR VOLUME 94.7 fL (80-100); MONOCYTES PERCENT AUTO 7.8 % (2-8); NEUTROPHILS PERCENT AUTO 84.8 % (42.2-75.2); PLATELET COUNT,PLT 610 10^3/uL (150-450); RED BLOOD CELL COUNT 3.04 10^6/uL (4.6-6.2); WHITE BLOOD CELL COUNT,WBC 18.7 10^3/uL (5.0-10.0)
[2023-10-02 07:13] LABS: ALANINE AMINOTRANSFERASE,ALT 17 U/L (16-63); ALBUMIN 2.5 g/dL (3.4-5.0); ALKALINE PHOSPHATASE 107 U/L (46-116); ANION GAP 8.9 mEq/L (7-13); ASPARTATE AMNIOTRANSFERASE,AST 13 U/L (15-37); BILIRUBIN TOTAL 0.7 mg/dL (0.2-1.0); BLOOD UREA NITROGEN,BUN 29 mg/dL (7-18); BUN/CREATININE RATIO 26.6 (No establ ref range); CARBON DIOXIDE,CO2 32 mmol/L (21-32); CHLORIDE,CL 103 mmol/L (98-107); CREATININE 1.09 mg/dL (0.70-1.30); GLUCOSE RANDOM 92 mg/dL (70-99); MAGNESIUM 2.1 mg/dL (1.8-2.4); POTASSIUM,K 4.9 mmol/L (3.5-5.1); PROTEIN TOTAL,TP 5.9 g/dL (6.4-8.2); SODIUM,NA 139 mmol/L (136-145)
[2023-10-02 07:22] LABS: A/G RATIO 0.74; ESTIMATED GFR 65 mL/min (>=60)
[2023-10-02] MEDS: Lidocaine 5% 700 MG Patch TOP SCH (08:29)
[2023-10-02] MEDS: Ferrous Sulfate 325 MG Tab PO ONE (21:30)
[2023-10-02] MEDS: Patient's Own Medication 1 Each EYEBOTH SCH (21:37)
[2023-10-03] MEDS: Pantoprazole 40 MG Tab.CR PO SCH (05:58)
[2023-10-03] MEDS: Levothyroxine 25 MCG Tab PO SCH (05:58)
[2023-10-03] MEDS ORDERED: QUEtiapine 25 MG Tab PO PRN (06:57)
[2023-10-03] MEDS: Ferrous Sulfate 325 MG Tab PO SCH (10:48)
[2023-10-03] MEDS: Ascorbic Acid 500 MG Tab PO SCH (12:35)
[2023-10-03] MEDS: Calcium Carbonate/Vitamin D3 1250 MG-5 MCG Tab PO SCH (12:36)
[2023-10-03] MEDS: Vitamin E (dl-alpha-tocopherol acetate) 400 Unit Cap PO SCH (12:36)
[2023-10-03] MEDS: Cyanocobalamin (Vitamin B12) 1,000 MCG Tab PO SCH (12:36)
[2023-10-03] MEDS: Sodium Chloride 0.9% 500 ML IV SCH (14:21)
[2023-10-03] MEDS: Midodrine 5 MG Tab PO PRN (14:21)
[2023-10-03] MEDS ORDERED: Sodium Chloride 0.9% 10 ML Syringe FLUSH PRN (14:27)
[2023-10-03 14:49] LABS: BASE EXCESS ARTERIAL 2 mmol/L ((-2)-(+3)); BICARBONATE,ARTERIAL 26.4 mmol/L (22-26); O2 DELIVERY DEVICE NASAL CANNULA; O2 SATURATION ARTERIAL 95 % (95-100); PCO2 ARTERIAL 43 mmHg (35-45); PO2 ARTERIAL 78 mmHg (70-100)
[2023-10-03 14:51] LABS: ALLEN TEST POSITIVE; O2 FLOW RATE 3
[2023-10-03] MEDS: Melatonin 3 MG Tab PO SCH (20:46)
[2023-10-03] MEDS: hydrOXYzine HCl 10 MG Tab PO SCH (20:46)
[2023-10-03] MEDS: rOPINIRole 0.25 MG Tab PO SCH (20:47)
[2023-10-03] MEDS: Sodium Chloride 0.9% 10 ML Syringe FLUSH SCH (20:48)
[2023-10-03] MEDS: QUEtiapine 25 MG Tab PO PRN (20:49)
[2023-10-05 06:32] LABS: BASOPHILS PERCENT AUTO 0.4 % (0.0-1.0); EOSINOPHILS PERCENT AUTO 0.9 % (1.0-3.0); HEMATOCRIT 25.5 % (40.0-54.0); HEMOGLOBIN 8.1 g/dL (14.0-18.0); MEAN CORPUSCULAR HGB CONC 31.8 g/dL (33.0-35.0); MEAN CORPUSCULAR VOLUME 94.4 fL (80-100); MONOCYTES PERCENT AUTO 14.1 % (2-8); NEUTROPHILS PERCENT AUTO 74.6 % (42.2-75.2); PLATELET COUNT,PLT 624 10^3/uL (150-450); WHITE BLOOD CELL COUNT,WBC 9.3 10^3/uL (5.0-10.0)
[2023-10-05 06:57] LABS: ALANINE AMINOTRANSFERASE,ALT 17 U/L (16-63); ALBUMIN 2.3 g/dL (3.4-5.0); ALKALINE PHOSPHATASE 98 U/L (46-116); ANION GAP 11.1 mEq/L (7-13); ASPARTATE AMNIOTRANSFERASE,AST 12 U/L (15-37); BILIRUBIN TOTAL 0.7 mg/dL (0.2-1.0); BLOOD UREA NITROGEN,BUN 31 mg/dL (7-18); BUN/CREATININE RATIO 32.6 (No establ ref range); CALCIUM 7.9 mg/dL (8.5-10.1); CARBON DIOXIDE,CO2 30 mmol/L (21-32); CHLORIDE,CL 105 mmol/L (98-107); CREATININE 0.95 mg/dL (0.70-1.30); GLUCOSE RANDOM 89 mg/dL (70-99); POTASSIUM,K 4.1 mmol/L (3.5-5.1); PROTEIN TOTAL,TP 5.7 g/dL (6.4-8.2); SODIUM,NA 142 mmol/L (136-145)
[2023-10-05 06:58] LABS: A/G RATIO 0.68; ESTIMATED GFR 77 mL/min (>=60)
[2023-10-06] MEDS: Calcium Carbonate 500 MG Tab.Chew PO PRN (14:51)
[2023-10-07] MEDS: Bismuth Subsalicylate 262 MG Tab.Chew PO PRN (13:37)
[2023-10-08 06:04] LABS: BASOPHILS PERCENT AUTO 0.2 % (0.0-1.0); EOSINOPHILS PERCENT AUTO 1.7 % (1.0-3.0); HEMATOCRIT 27.1 % (40.0-54.0); HEMOGLOBIN 8.6 g/dL (14.0-18.0); LYMPHOCYTES PERCENT AUTO 12.5 % (20.5-50.1); MEAN CORPUSCULAR HGB CONC 31.7 g/dL (33.0-35.0); MEAN CORPUSCULAR VOLUME 94.4 fL (80-100); MONOCYTES PERCENT AUTO 14.1 % (2-8); NEUTROPHILS PERCENT AUTO 71.5 % (42.2-75.2); PLATELET COUNT,PLT 605 10^3/uL (150-450); RED BLOOD CELL COUNT 2.87 10^6/uL (4.6-6.2); WHITE BLOOD CELL COUNT,WBC 8.1 10^3/uL (5.0-10.0)
[2023-10-08 06:19] LABS: ANION GAP 8.6 mEq/L (7-13); BLOOD UREA NITROGEN,BUN 18 mg/dL (7-18); CALCIUM 7.9 mg/dL (8.5-10.1); CARBON DIOXIDE,CO2 33 mmol/L (21-32); CHLORIDE,CL 104 mmol/L (98-107); CREATININE 0.88 mg/dL (0.70-1.30); GLUCOSE RANDOM 86 mg/dL (70-99); POTASSIUM,K 3.6 mmol/L (3.5-5.1); SODIUM,NA 142 mmol/L (136-145)
[2023-10-08 06:20] LABS: ESTIMATED GFR 82 mL/min (>=60)
[2023-10-08] MEDS ORDERED: Benzonatate 100 MG Cap PO PRN (08:38)
[2023-10-08] MEDS: [UNRECOGNIZED DRUG - OTHER] EYEBOTH PRN (11:42)
[2023-10-09] MEDS: guaiFENesin 600 MG Tab.ER PO SCH (08:27)
[2023-10-09] MEDS ORDERED: Menthol/Zinc Oxide Ointment 113 GM Tube TOP PRN (14:11)
[2023-10-09] MEDS: QUEtiapine 25 MG Tab PO SCH (20:03)
[2023-10-11] MEDS: Loperamide 2 MG Cap PO PRN (09:35)
[2023-10-13] MEDS: QUEtiapine 25 MG Tab PO SCH (20:05)
[2023-10-16 06:41] LABS: BASOPHILS PERCENT AUTO 0.4 % (0.0-1.0); EOSINOPHILS PERCENT AUTO 1.5 % (1.0-3.0); HEMATOCRIT 28.4 % (40.0-54.0); LYMPHOCYTES PERCENT AUTO 10.5 % (20.5-50.1); MEAN CORPUSCULAR HGB CONC 31.7 g/dL (33.0-35.0); MEAN CORPUSCULAR VOLUME 94.7 fL (80-100); MONOCYTES PERCENT AUTO 10.7 % (2-8); NEUTROPHILS PERCENT AUTO 76.9 % (42.2-75.2); PLATELET COUNT,PLT 559 10^3/uL (150-450); WHITE BLOOD CELL COUNT,WBC 9.5 10^3/uL (5.0-10.0)
[2023-10-16 06:58] LABS: ANION GAP 8.1 mEq/L (7-13); CALCIUM 7.6 mg/dL (8.5-10.1); CREATININE 0.88 mg/dL (0.70-1.30); EST CRCL DRUG DOSING (CG) 45.09 mL/min; POTASSIUM,K 4.1 mmol/L (3.5-5.1)
[2023-10-16 08:26] VITALS: BP 105/58; PULSE 91
== END 2023-10-16 10:20 | disposition home health service (06) | DRG 560 ==
LOC: DL.MS 12:47
PROVIDERS: ADMIT Internal Medicine; ATTEND Internal Medicine
DX: Z47.1 Aftercare following joint replacement surgery (principal); J96.11 Chronic respiratory failure with hypoxia; S72.001D Fracture of unspecified part of neck of right femur, subsequent encounter for closed fracture with routine healing; Z66 Do not resuscitate; H91.90 Unspecified hearing loss, unspecified ear; J44.9 Chronic obstructive pulmonary disease, unspecified; I27.20 Pulmonary hypertension, unspecified; E03.9 Hypothyroidism, unspecified; G47.00 Insomnia, unspecified; F41.9 Anxiety disorder, unspecified; G25.81 Restless legs syndrome; I10 Essential (primary) hypertension; H54.7 Unspecified visual loss; N40.0 Benign prostatic hyperplasia without lower urinary tract symptoms; Z96.641 Presence of right artificial hip joint; D64.89 Other specified anemias; R26.9 Unspecified abnormalities of gait and mobility; R60.0 Localized edema; Z99.81 Dependence on supplemental oxygen; Z87.891 Personal history of nicotine dependence; Z79.51 Long term (current) use of inhaled steroids; Z79.899 Other long term (current) drug therapy; Z79.01 Long term (current) use of anticoagulants; Z90.49 Acquired absence of other specified parts of digestive tract; Z98.49 Cataract extraction status, unspecified eye; Z98.890 Other specified postprocedural states
CPT/HCPCS: 36415; 36600; 80048; 80053; 82306; 82803; 82947; 83735; 85025; 87493; 92610-GN; 94010; 94060; 94640; 94664; 94667; 94668; 94760; 97110-GO; 97110-GP; 97116-GP; 97161-GP; 97165-GO; 97530-GO; 97530-GP; 99305; 99309; 99316; A9270-GY; J1650; J1885; J3486; J3490; J7040; J7620-GY